=== PATIENT | female | born 1975 | race Caucasian/White ===

== ENCOUNTER 2016-06-22 22:34 | Emergency (ER) | payer OTHER ==
[2016-06-22 22:44] VITALS: RESP 18
--- NOTE | 2016-06-22 23:18 | ED ---
Psych HPI <Haseeb Yusuf - Last Filed: 06/23/16 10:52> - General Source: patient, RN notes reviewed Mode of arrival: ambulatory <Shirley Sorenson - Last Filed: 08/06/16 04:39> - General Chief Complaint: Psychiatric Symptoms Stated Complaint: Petitioned Time Seen by Provider: 06/22/16 22:49 - History of Present Illness Initial Comments: Patient is a 40-year-old female presents to the emergency room for psychiatric evaluation. Patient was petitioned by her sister and daughter. Patient states she was sitting in her house and was getting ready to go to bed when the police came and picked her up. Patient states she has not drank alcohol for 15 years. Patient states she began drinking alcohol the past 3 months every day. Patient states she has no reason to overindulge alcohol she states "I don't give a shit about anything anymore". Patient denies suicidal or homicidal ideations. Patient states if she was suicidal she would've done the job without telling anyone. Patient states she has always lived her life being a "good girl" and decided she didn't want to be like that anymore so that's why she took up drinking. Patient denies illicit drug use. Patient denies marijuana use. Patient states she goes through about a pack of cigarettes per day. Patient denies any significant past medical history. Patient denies taking any medications. Patient states her last menstrual cycle was a month and a half ago. Patient states she is worried she is . Patient states she thinks she was petitioned by her daughter and sister because they want her baby patient denies chest pain, shortness of breath, headache, dizziness, fevers , chills, nausea, vomiting, abdominal pain.. (Shirley Sorenson) - Related Data Home Medications Medication Instructions Recorded Confirmed Albuterol Inhaler [Ventolin Hfa 1 - 2 puff INHALATION RT-QID PRN 06/22/16 Inhaler] Ibuprofen [Motrin] 600 mg PO BID PRN 06/22/16 06/22/16 Allergies Allergy/AdvReac Type Severity Reaction Status Date / Time Penicillins Allergy Unknown Verified 06/22/16 22:59 Review of Systems ROS Other: All systems not noted in ROS Statement are negative. <Haseeb Yusuf - Last Filed: 06/23/16 10:52> ROS Other: All systems not noted in ROS Statement are negative. <Shirley Sorenson - Last Filed: 08/06/16 04:39> ROS Statement: Those systems with pertinent positive or pertinent negative responses have been documented in the HPI. Past Medical History Past Medical History: Asthma, Hypertension History of Any Multi-Drug Resistant Organisms: None Reported Past Surgical History: Orthopedic Surgery Past Psychological History: Anxiety Smoking Status: Current every day smoker Past Alcohol Use History: Daily Past Drug Use History: None Reported <Shirley Sorenson - Last Filed: 08/06/16 04:39> General Exam <Haseeb Yusuf - Last Filed: 06/23/16 10:52> Limitations: no limitations General appearance: alert, in no apparent distress, appears intoxicated Head exam: Present: atraumatic, normocephalic, normal inspection Eye exam: Present: normal appearance, PERRL, EOMI Pupils: Present: normal accommodation ENT exam: Present: normal exam Neck exam: Present: normal inspection Respiratory exam: Present: normal lung sounds bilaterally. Absent: respiratory distress Cardiovascular Exam: Present: normal rhythm, tachycardia, normal heart sounds GI/Abdominal exam: Present: soft, normal bowel sounds. Absent: distended, tenderness, guarding, rebound, rigid Extremities exam: Present: normal inspection Back exam: Present: normal inspection Neurological exam: Present: alert, oriented X3, CN II-XII intact, normal gait Psychiatric exam: Present: normal affect, normal mood Skin exam: Present: warm, dry, intact, normal color. Absent: rash <Shirley Sorenson - Last Filed: 08/06/16 04:39> - General Exam Comments Initial Comments: Sitting in exam room, no acute distress. (Shirley Sorenson) Course <Haseeb Yusuf - Last Filed: 06/23/16 10:52> <Shirley Sorenson - Last Filed: 08/06/16 04:39> Vital Signs 06/22/16 06/23/16 06/23/16 22:40 07:01 12:11 Temperature 99.2 F 97.8 F 98.3 F Pulse Rate 112 H 65 77 Respiratory 18 18 18 Rate Blood Pressure 151/107 165/106 168/72 O2 Sat by Pulse 96 100 99 Oximetry - Reevaluation(s) Reevaluation #1: 06/23/16 05:10 Patient complaining of throat pain. Rapid strep ordered and negative. Patient given Tylenol for discomfort. (Shirley Sorenson) Medical Decision Making <Haseeb Yusuf - Last Filed: 06/23/16 10:52> <Shirley Sorenson - Last Filed: 08/06/16 04:39> - Medical Decision Making Patient is a 40-year-old female presents emergency room for psychiatric evaluation. Patient was petitioned by her sister and daughter. Patient can be evaluated when she sober at 9 AM. (Shirley Sorenson) - Lab Data Lab Results 06/22/16 06/22/16 06/23/16 Range/Units 22:00 22:00 04:28 Urine HCG, Qual Not Detected (Not Detectd) Urine Opiates Screen Not Detected (NotDetected) Ur Oxycodone Screen Not Detected (NotDetected) Urine Methadone Screen Not Detected (NotDetected) Ur Propoxyphene Screen Not Detected (NotDetected) Ur Barbiturates Screen Not Detected (NotDetected) U Tricyclic Antidepress Not Detected (NotDetected) Ur Phencyclidine Scrn Not Detected (NotDetected) Ur Amphetamines Screen Not Detected (NotDetected) U Methamphetamines Scrn Not Detected (NotDetected) U Benzodiazepines Scrn Not Detected (NotDetected) Urine Cocaine Screen Not Detected (NotDetected) U Marijuana (THC) Screen Not Detected (NotDetected) Group A Strep Rapid Negative (Negative) Disposition Time of Disposition: 10:52 <Haseeb Yusuf - Last Filed: 06/23/16 10:52> Time of Disposition: 10:52 <Shirley Sorenson - Last Filed: 08/06/16 04:39> Clinical Impression: Situational depression, Alcohol intoxication Disposition: TRANSFER TO PSYCH HOSP/UNIT Condition: Stable Instructions: Alcohol Intoxication (ED) Referrals: None,Stated [Primary Care Provider] - 1-2 days
[2016-06-23] MEDS ORDERED: ACETAMINOPHEN TAB 325 MG TAB PO STA (03:59)
[2016-06-23] MEDS ORDERED: LORazepam 1 MG TAB PO STA (07:13)
[2016-06-23 12:13] VITALS: BP 168/72; PULSE 77; TEMP 98.3
== END 2016-06-23 12:13 | disposition home or self-care (01) ==
LOC: EC 22:34
DX: F43.21 Adjustment disorder with depressed mood (principal); F10.129 Alcohol abuse with intoxication, unspecified; Z88.0 Allergy status to penicillin; F17.210 Nicotine dependence, cigarettes, uncomplicated; J02.9 Acute pharyngitis, unspecified
CPT/HCPCS: 80306; 81025; 82075; 87081; 87430; 99284

== ENCOUNTER 2016-08-23 19:57 | Emergency (ER) | payer OTHER ==
[2016-08-23 20:15] VITALS: BP 155/91; PULSE 121; RESP 20; TEMP 98.7
[2016-08-23] MEDS ORDERED: SODIUM CHLORIDE 0.9% 1,000 ML IV ONE (20:42)
== END 2016-08-23 20:57 | disposition left against medical advice (07) ==
LOC: EC 19:57
DX: R10.9 Unspecified abdominal pain (principal); Z53.21 Procedure and treatment not carried out due to patient leaving prior to being seen by health care provider
CPT/HCPCS: 99499

== ENCOUNTER 2016-09-08 19:16 | Observation (INO) | payer OTHER ==
[2016-09-08] MEDS ORDERED: MORPHINE SULFATE 4 MG/ML SYRINGE IV STA (19:35)
[2016-09-08] MEDS ORDERED: SODIUM CHLORIDE 0.9% 1,000 ML IV STA ×2 (19:35)
[2016-09-08] MEDS ORDERED: ONDANSETRON 4 MG/2 ML VIAL IVP STA (19:35)
[2016-09-08] MEDS ORDERED: SODIUM CHLORIDE 0.9% 1,000 ML IV ONE (19:39)
--- NOTE | 2016-09-08 19:55 | ED ---
Chest Pain HPI - General Chief Complaint: Chest Pain Stated Complaint: chest pain Time Seen by Provider: 09/08/16 19:26 Source: EMS Mode of arrival: EMS - History of Present Illness Initial Comments: 40 years old female presented with chest pain, chest pain started about 2-3 hours ago she is also very short-winded and a deep breaths cause her chest pain to get worse. She does have a history of COPD has been coughing complaining about fever or chills but cough is dry he has smoked for greater than 15 years and a she has COPD. She has albuterol to go a few times now she feels shaky area denies any abdominal pain no frequency urgency dysuria no sinus symptoms of TIA or CVA. She told me later that she has been drinking quite heavy every day for the last several months she been drinking about 10 beers daily last drink was this morning around 9:00 - Related Data Home Medications Medication Instructions Recorded Confirmed Albuterol Inhaler [Ventolin Hfa 1 - 2 puff INHALATION RT-Q6H PRN 09/08/16 Inhaler] Cyanocobalamin (Vitamin B-12) 1,000 mcg PO DAILY 09/08/16 09/08/16 [Vitamin B-12] Ferrous Sulfate [Feosol] 325 mg PO DAILY 09/08/16 09/08/16 Gzd-Kbih-Mlobi Acid 1 cap PO DAILY 09/08/16 09/08/16 [-U Capsule (formulary)] Allergies Allergy/AdvReac Type Severity Reaction Status Date / Time Penicillins Allergy Unknown Verified 09/08/16 20:16 ibuprofen AdvReac patient Verified 09/08/16 20:16 has ulcer Review of Systems ROS Statement: Those systems with pertinent positive or pertinent negative responses have been documented in the HPI. ROS Other: All systems not noted in ROS Statement are negative. EKG Findings - EKG Comments: EKG Findings:: Is sinus tach, ventricular rate is 136 IN interval is 1:30 QRS duration is 68 QT/QTc is 372/459-50 mL EKG does not reveal any ST elevation or ST depression Past Medical History Past Medical History: Asthma, Hypertension Additional Past Medical History / Comment(s): gastric ulcer History of Any Multi-Drug Resistant Organisms: None Reported Past Surgical History: Orthopedic Surgery Past Psychological History: Anxiety, Bipolar, Depression Smoking Status: Current every day smoker Past Alcohol Use History: Abuse, Daily, Heavy Past Drug Use History: None Reported General Exam - General Exam Comments Initial Comments: General: The patient is awake and alert, in no distress, and does not appear acutely ill. Looks anxious him and noticed some tremors Skin: Skin is warm and dry and no rashes or lesions are noted. Eye: Pupils are equal, round and reactive to light, extra-ocular movements are intact; there is normal conjunctiva bilaterally. Ears, nose, mouth and throat: There are moist mucous membranes and no oral lesions. Neck: The neck is supple, there is no tenderness Cardiovascular: There is a regular rate and rhythm. No murmur, rub or gallop is appreciated. Noticed tachycardia at the rate of 136 Respiratory: To auscultation bilateral, consistent with the moderate to severe COPD Gastrointestinal: Soft, non-distended, non-tender abdomen without masses or organomegaly noted. There is no rebound or guarding present. Bowel sounds are unremarkable. Back: There is no tenderness to palpation in the midline. There is no obvious deformity. Musculoskeletal: Normal ROM, no tenderness, There is no pedal edema. There is no calf tenderness or swelling. No cords were appreciated. Neurological: CN II-XII intact, Cranial nerves III through XII are intact. There are no obvious motor or sensory deficits. Coordination appears grossly intact. Speech is normal. Psychiatric: Cooperative, appropriate mood & affect, normal judgment. Course Vital Signs 09/08/16 09/08/16 09/08/16 19:18 19:42 20:31 Temperature 98.6 F Pulse Rate 90 130 H 120 H Respiratory 20 24 18 Rate Blood Pressure 153/78 125/73 127/84 O2 Sat by Pulse 99 99 96 Oximetry Disposition Clinical Impression: Shortness of breath, Chest pain, Pleuritic chest pain, Alcohol withdrawal Disposition: ADMITTED IP TO THIS HOSP Condition: Good Referrals: None,Stated [Primary Care Provider] - 1-2 days
--- NOTE | 2016-09-08 20:08 | XR ---
EXAMINATION TYPE: XR chest 2V DATE OF EXAM: 09/08/2016 8:03 PM COMPARISON: NONE HISTORY: Chest pain TECHNIQUE: Frontal and lateral views of the chest are obtained. FINDINGS: Heart and mediastinum are normal. There are no hilar masses. There is small linear density at the left lung base. There are chest leads. Bony thorax is intact. IMPRESSION: Mild subsegmental atelectasis at the left lung base. Normal heart.
[2016-09-08 20:09] LABS: Partial Thromboplastin Time 25.7 sec (22.0-30.0); Prothrombin Time 10.4 sec (9.0-12.0)
[2016-09-08 20:15] LABS: ALT 59 U/L (9-52); AST 145 U/L (14-36); Alkaline Phosphatase 133 U/L (38-126); Anion Gap 9 mmol/L; Blood Urea Nitrogen 2 mg/dL (7-17); Calcium 8.4 mg/dL (8.4-10.2); Carbon Dioxide 25 mmol/L (22-30); Chloride 104 mmol/L (98-107); Glucose 130 mg/dL (74-99); Magnesium 1.6 mg/dL (1.6-2.3); Non-African American GFR(MDRD) >60 (>60 ml/min/1.73 sqM); Potassium 3.7 mmol/L (3.5-5.1); Sodium 138 mmol/L (137-145); Total Bilirubin 0.5 mg/dL (0.2-1.3); Total Protein 6.4 g/dL (6.3-8.2)
[2016-09-08 20:16] LABS: Anisocytosis Slight; Basophils % (A) 1 %; CH 33.3; CHCM 31.2; Eosinophils # (A) 0.1 k/uL (0-0.7); Eosinophils % (A) 2 %; HCT 35.1 % (34.0-46.0); HDW 2.17; HGB 11.5 gm/dL (11.4-16.0); Luc # (Auto) 0.09; Luc % (Auto) 2; Lymphocytes # (A) 1.2 k/uL (1.0-4.8); Lymphocytes % (A) 24 %; MCH 34.9 pg (25.0-35.0); MCHC 32.6 g/dL (31.0-37.0); MCV 106.9 fL (80.0-100.0); Macrocytosis Marked; Mean Platelet Volume 7.4; Monocytes # (A) 0.2 k/uL (0-1.0); Monocytes % (A) 5 %; Neutrophils # (A) 3.2 k/uL (1.3-7.7); Neutrophils % (A) 66 %; RBC 3.28 m/uL (3.80-5.40); RDW 17.2 % (11.5-15.5); WBC 4.8 k/uL (3.8-10.6); WBC (Perox) 4.92
[2016-09-08 20:20] LABS: Creatine Kinase 34 U/L (30-135)
[2016-09-08 20:33] VITALS: RESP 18
[2016-09-08 20:34] LABS: Creatine Kinase MB 0.3 ng/mL (0.0-2.4); Troponin I <0.012 ng/mL (0.000-0.034)
[2016-09-08] MEDS ORDERED: DIAZEPAM 5 MG TAB PO STA (20:47)
[2016-09-08] MEDS ORDERED: THIAMINE 100 MG/ML 2 ML VIAL IM STA (20:50)
[2016-09-08] MEDS ORDERED: LORazepam 2 MG/ML SYRINGE IV PRN ×2 (20:50)
[2016-09-08] MEDS ORDERED: ALBUTEROL NEBULIZED 2.5 MG/3 ML INHALATION PRN (20:56)
[2016-09-08] MEDS ORDERED: PANTOPRAZOLE 40 MG/10 ML VIAL IVP STA (20:57)
[2016-09-08] MEDS ORDERED: DIAZEPAM 5 MG TAB PO PRN (20:58)
[2016-09-08] MEDS ORDERED: METOPROLOL TARTRATE 25 MG TAB PO SCH (21:00)
[2016-09-08] MEDS ORDERED: HEPARIN SODIUM,PORCINE/D5W PMX 25,000 UNIT in DEXTROSE/WATER 1 500ML.BAG IV SCH (21:00)
[2016-09-08] MEDS: MORPHINE SULFATE 4 MG/ML SYRINGE IV PRN ×2 (21:45→23:32)
[2016-09-08] MEDS ORDERED: THIAMINE 100 MG TAB PO SCH (22:00)
[2016-09-08 22:44] VITALS: BMI 24.3
[2016-09-08] MEDS: SODIUM CHLORIDE 0.9% 1,000 ML IV SCH (23:00)
[2016-09-08] MEDS: NITROGLYCERIN SL TABS 0.4 MG TAB SUBLINGUAL PRN ×3 (23:14→23:23)
[2016-09-08] MEDS: LORazepam 2 MG/ML SYRINGE IV PRN (23:40)
[2016-09-09 01:59] LABS: Creatine Kinase 51 U/L (30-135)
[2016-09-09 02:12] LABS: Creatine Kinase MB 0.6 ng/mL (0.0-2.4); Troponin I <0.012 ng/mL (0.000-0.034)
[2016-09-09] MEDS: LORazepam 2 MG/ML SYRINGE IV PRN ×4 (02:56→07:31)
[2016-09-09] MEDS: SODIUM CHLORIDE 0.9% 1,000 ML IV SCH (06:37)
[2016-09-09 08:09] VITALS: BP 139/86; PULSE 94; TEMP 98.1
[2016-09-09 08:15] LABS: Cholesterol 135 mg/dL (<200); HDL Cholesterol 55 mg/dL (40-60); Triglycerides 127 mg/dL (<150)
[2016-09-09 08:26] LABS: Creatine Kinase 50 U/L (30-135)
[2016-09-09 08:40] LABS: Creatine Kinase MB 0.6 ng/mL (0.0-2.4); Troponin I <0.012 ng/mL (0.000-0.034)
[2016-09-09] MEDS ORDERED: PRENATAL VIT-IRON-FOLIC ACID 1 EACH CAP PO SCH (09:00)
[2016-09-09] MEDS ORDERED: FERROUS SULFATE 325 MG TAB PO SCH (09:00)
[2016-09-09] MEDS ORDERED: PANTOPRAZOLE 40 MG/10 ML VIAL IVP SCH (09:00)
[2016-09-09] MEDS ORDERED: ASPIRIN 325 MG TAB PO SCH (09:00)
[2016-09-09] MEDS ORDERED: CYANOCOBALAMIN 500 MCG TAB PO SCH (12:00)
--- NOTE | 2016-09-27 08:42 | HP ---
DATE OF ADMISSION: FINAL DIAGNOSES: 1. Shortness of breath. 2. Pleuritic chest. 3. Alcohol withdrawal. HISTORY OF PRESENT ILLNESS: This 40-year-old woman was admitted with multiple medical problems as mentioned earlier; but however, the patient left the hospital AGAINST MEDICAL ADVICE before being seen. Please refer to the staff notes and ER notes for further details.
--- NOTE | 2016-09-28 08:20 | DS ---
DATE OF ADMISSION: 09/08/2016 DATE OF DISCHARGE: 09/09/2016 FINAL DIAGNOSES: 1. Shortness of breath for evaluation of chest pain, possible coronary artery disease. 2. Pleuritic chest pain. 3. History of alcohol withdrawal. HISTORY OF PRESENT ILLNESS: This 40-year-old woman with a past medical history was admitted with multiple medical problems as mentioned earlier, but however the patient left the hospital AGAINST MEDICAL ADVICE before being seen. Please refer to the staff notes and ER physician notes for further information. The prognosis was extremely guarded throughout the hospital stay.
== END 2016-09-09 10:13 | disposition left against medical advice (07) ==
LOC: EC 19:16 → INTOOBSV 20:51 → 6SEL 20:51
PROVIDERS: ADMIT Hospitalist; ATTEND Hospitalist
DX: R07.89 Other chest pain (principal); F10.239 Alcohol dependence with withdrawal, unspecified; R06.02 Shortness of breath; I10 Essential (primary) hypertension; J44.9 Chronic obstructive pulmonary disease, unspecified; F17.200 Nicotine dependence, unspecified, uncomplicated; F41.9 Anxiety disorder, unspecified; F31.9 Bipolar disorder, unspecified; R00.0 Tachycardia, unspecified; Z88.6 Allergy status to analgesic agent; Z53.21 Procedure and treatment not carried out due to patient leaving prior to being seen by health care provider; Z79.899 Other long term (current) drug therapy; Z88.0 Allergy status to penicillin; Z87.11 Personal history of peptic ulcer disease; J45.909 Unspecified asthma, uncomplicated
CPT/HCPCS: 96366 ×2; 96376; 96361; 96365; 96372; 96375; 99285; 36415; 94760; 93005; 85379; 80061; 80053; 82550 ×2; 82553 ×2; 83735; 84484 ×2; 85025; 85610; 85730 ×2; 71020; G0378 ×2; J2060 ×2; J2270; J3411; J2405; J1644; C9113

== ENCOUNTER 2016-10-02 19:07 | Emergency (ER) | payer OTHER ==
[2016-10-02 19:22] VITALS: RESP 16
--- NOTE | 2016-10-02 19:37 | ED ---
Head Injury HPI - General Chief complaint: Head Injury Stated complaint: lump on head/dizzy Time Seen by Provider: 10/02/16 19:26 Source: patient Mode of arrival: ambulatory Limitations: no limitations - History of Present Illness Initial comments: 40-year-old female states last Tuesday which was 6-7 days ago she slipped on the step fell backwards striking the back of her left head. She was stunned knocked out briefly had vomiting for 2 days has continued have some dizziness occasional spinning no visual disturbance no focal numbness or weakness no neck or back pain denies injury elsewhere. Patient has a regular drinker planning to go into rehab. She denies drug use. No previous head injuries. She was hospitalized last July for an extended seizure at [facility] and was intubated for 3 days - Related Data Home Medications Medication Instructions Recorded Confirmed Albuterol Inhaler [Ventolin Hfa 2 puff INHALATION RT-Q4H PRN 09/08/16 10/02/16 Inhaler] Acetaminophen [Tylenol] 650 mg PO Q4H 10/02/16 10/02/16 Atenolol 25 mg PO DAILY@0600 10/02/16 10/02/16 Chlorpheniramine Maleate 4 mg PO Q4H PRN 10/02/16 10/02/16 [Chlor-Trimeton] Ibuprofen [Motrin] 600 mg PO Q6HR PRN 10/02/16 10/02/16 Loperamide [Imodium] 2 mg PO QID PRN 10/02/16 10/02/16 Multivitamins, Thera [Multivitamin 1 tab PO DAILY 10/02/16 10/02/16 (formulary)] Ondansetron HCl [Zofran] 8 mg PO Q6H PRN 10/02/16 10/02/16 Ondansetron [Zofran] 4 mg IM Q6H PRN 10/02/16 10/02/16 Ranitidine HCl [Zantac] 150 mg PO BID@0600,1730 10/02/16 10/02/16 Thiamine [Vitamin B-1] 100 mg PO DAILY 10/02/16 10/02/16 Tigan 200mg 200 mg IM Q6H PRN 10/02/16 10/02/16 Trimethobenzamide HCl [Tigan] 300 mg PO Q6H PRN 10/02/16 10/02/16 cloNIDine HCL [Catapres] 0.1 - 0.3 mg PO DAILY PRN 10/02/16 10/02/16 traZODone HCL [Desyrel] 50 - 150 mg PO HS@2200 10/02/16 10/02/16 Previous Rx's Medication Instructions Recorded Amitriptyline HCl [Elavil] 10 mg PO HS #30 tablet 10/02/16 Allergies/Adverse reactions: Allergies Allergy/AdvReac Type Severity Reaction Status Date / Time Penicillins Allergy Unknown Verified 10/02/16 19:22 ibuprofen AdvReac patient Verified 10/02/16 19:22 has ulcer Review of Systems ROS Statement: Those systems with pertinent positive or pertinent negative responses have been documented in the HPI. ROS Other: All systems not noted in ROS Statement are negative. Constitutional: Denies: fever, chills Eyes: Denies: eye pain ENT: Denies: ear pain, throat pain Respiratory: Denies: cough Cardiovascular: Denies: chest pain Gastrointestinal: Reports: nausea, vomiting. Denies: abdominal pain Genitourinary: Denies: urgency, dysuria, frequency Musculoskeletal: Denies: back pain Skin: Denies: rash Neurological: Reports: headache Psychiatric: Denies: anxiety, depression Hematological/Lymphatic: Denies: easy bleeding, easy bruising Past Medical History Past Medical History: Asthma, COPD, Hypertension, Seizure Disorder Additional Past Medical History / Comment(s): gastric ulcer, emphysema, seizure after stopping etoh use History of Any Multi-Drug Resistant Organisms: None Reported Past Surgical History: Orthopedic Surgery Additional Past Surgical History / Comment(s): TMJ (jaw was locked), 3 left rotator cuff surgeries Past Anesthesia/Blood Transfusion Reactions: No Reported Reaction Past Psychological History: ADD/ADHD, Anxiety, Bipolar, Depression Smoking Status: Current every day smoker Past Alcohol Use History: Abuse, Daily, Heavy Past Drug Use History: None Reported - Past Family History Father Family Medical History: Congestive Heart Failure (CHF) General Exam Limitations: no limitations General appearance: alert Head exam: Present: other (Large hematoma on the posterior left scalp behind the ear) Eye exam: Present: PERRL, EOMI. Absent: scleral icterus Pupils: Present: normal accommodation ENT exam: Present: normal oropharynx, mucous membranes moist, TM's normal bilaterally Neck exam: Present: normal inspection Respiratory exam: Present: normal lung sounds bilaterally Cardiovascular Exam: Present: regular rate, normal heart sounds GI/Abdominal exam: Present: soft. Absent: tenderness Neurological exam: Present: alert, oriented X3, CN II-XII intact, reflexes normal. Absent: motor sensory deficit Psychiatric exam: Present: normal affect, normal mood Skin exam: Present: warm, dry Course Vital Signs 10/02/16 10/02/16 10/02/16 19:17 20:11 21:22 Temperature 98.3 F Pulse Rate 97 80 83 Respiratory 16 16 16 Rate Blood Pressure 153/93 150/104 O2 Sat by Pulse 97 98 97 Oximetry Medical Decision Making - Medical Decision Making She noticed some dizziness and headache postop concussion has scalp hematoma have advised her used heat and follow head injury precautions will follow-up with family doctor and referral to neurology. - Lab Data Result diagrams: 10/02/16 20:11 10/02/16 20:11 Lab Results 10/02/16 10/02/16 10/02/16 Range/Units 19:15 19:15 20:10 WBC (3.8-10.6) k/uL RBC (3.80-5.40) m/uL Hgb (11.4-16.0) gm/dL Hct (34.0-46.0) % MCV (80.0-100.0) fL MCH (25.0-35.0) pg MCHC (31.0-37.0) g/dL RDW (11.5-15.5) % Plt Count (150-450) k/uL Neutrophils % % Lymphocytes % % Monocytes % % Eosinophils % % Basophils % % Neutrophils # (1.3-7.7) k/uL Lymphocytes # (1.0-4.8) k/uL Monocytes # (0-1.0) k/uL Eosinophils # (0-0.7) k/uL Basophils # (0-0.2) k/uL Macrocytosis PT 9.8 (9.0-12.0) sec INR 1.0 (<1.1) Sodium (137-145) mmol/L Potassium (3.5-5.1) mmol/L Chloride (98-107) mmol/L Carbon Dioxide (22-30) mmol/L Anion Gap mmol/L BUN (7-17) mg/dL Creatinine (0.52-1.04) mg/dL Est GFR (MDRD) Af Amer (>60 ml/min/1.73 sqM) Est GFR (MDRD) Non-Af (>60 ml/min/1.73 sqM) Glucose (74-99) mg/dL Calcium (8.4-10.2) mg/dL Total Bilirubin (0.2-1.3) mg/dL AST (14-36) U/L ALT (9-52) U/L Alkaline Phosphatase (38-126) U/L Total Protein (6.3-8.2) g/dL Albumin (3.5-5.0) g/dL Urine Color Colorless Urine Appearance Clear (Clear) Urine pH 7.0 (5.0-8.0) Ur Specific [place] 1.003 (1.001-1.035) Urine Protein Negative (Negative) Urine Glucose (UA) Negative (Negative) Urine Ketones Negative (Negative) Urine Blood Negative (Negative) Urine Nitrite Negative (Negative) Urine Bilirubin Negative (Negative) Urine Urobilinogen <2.0 (<2.0) mg/dL Ur Leukocyte Esterase Negative (Negative) Urine HCG, Qual Not Detected (Not Detectd) 10/02/16 10/02/16 Range/Units 20:11 20:11 WBC 7.4 (3.8-10.6) k/uL RBC 3.60 L (3.80-5.40) m/uL Hgb 12.6 (11.4-16.0) gm/dL Hct 38.2 (34.0-46.0) % MCV 106.2 H (80.0-100.0) fL MCH 35.0 (25.0-35.0) pg MCHC 33.0 (31.0-37.0) g/dL RDW 15.2 (11.5-15.5) % Plt Count 143 L (150-450) k/uL Neutrophils % 60 % Lymphocytes % 28 % Monocytes % 8 % Eosinophils % 2 % Basophils % 0 % Neutrophils # 4.5 (1.3-7.7) k/uL Lymphocytes # 2.1 (1.0-4.8) k/uL Monocytes # 0.6 (0-1.0) k/uL Eosinophils # 0.1 (0-0.7) k/uL Basophils # 0.0 (0-0.2) k/uL Macrocytosis Moderate PT (9.0-12.0) sec INR (<1.1) Sodium 139 (137-145) mmol/L Potassium 4.6 (3.5-5.1) mmol/L Chloride 107 (98-107) mmol/L Carbon Dioxide 22 (22-30) mmol/L Anion Gap 10 mmol/L BUN 9 (7-17) mg/dL Creatinine 0.60 (0.52-1.04) mg/dL Est GFR (MDRD) Af Amer >60 (>60 ml/min/1.73 sqM) Est GFR (MDRD) Non-Af >60 (>60 ml/min/1.73 sqM) Glucose 106 H (74-99) mg/dL Calcium 10.1 (8.4-10.2) mg/dL Total Bilirubin 0.5 (0.2-1.3) mg/dL AST 70 H (14-36) U/L ALT 71 H (9-52) U/L Alkaline Phosphatase 132 H (38-126) U/L Total Protein 7.4 (6.3-8.2) g/dL Albumin 4.1 (3.5-5.0) g/dL Urine Color Urine Appearance (Clear) Urine pH (5.0-8.0) Ur Specific [place] (1.001-1.035) Urine Protein (Negative) Urine Glucose (UA) (Negative) Urine Ketones (Negative) Urine Blood (Negative) Urine Nitrite (Negative) Urine Bilirubin (Negative) Urine Urobilinogen (<2.0) mg/dL Ur Leukocyte Esterase (Negative) Urine HCG, Qual (Not Detectd) - Radiology Data Radiology results: report reviewed CT normal Disposition Clinical Impression: Closed head injury, Hematoma of scalp, Postconcussion syndrome Disposition: HOME SELF-CARE Condition: Good Instructions: Concussion (ED) Additional Instructions: See family physician recommend follow-up with neurologist Prescriptions: Amitriptyline HCl [Elavil] 10 mg PO HS #30 tablet Referrals: Leonid Olmstead MD [Primary Care Provider] - 1-2 days Time of Disposition: 21:28
[2016-10-02 19:48] LABS: Appearance,Urine Clear (Clear); Bilirubin,Urine Negative (Negative); Glucose,Urine (UA) Negative (Negative); Ketones,Urine Negative (Negative); Leukocyte Esterase,Urine Negative (Negative); Nitrite,Urine Negative (Negative); Protein,Urine Negative (Negative); Specific Gravity,Urine 1.003 (1.001-1.035); UA Billing (MACRO vs. MICRO) CHEM; Urobilinogen,Urine <2.0 mg/dL (<2.0)
[2016-10-02 20:20] LABS: Basophils % (A) 0 %; CH 35.1; CHCM 33.2; Eosinophils # (A) 0.1 k/uL (0-0.7); Eosinophils % (A) 2 %; HCT 38.2 % (34.0-46.0); HDW 2.04; HGB 12.6 gm/dL (11.4-16.0); Luc # (Auto) 0.19; Luc % (Auto) 3; Lymphocytes # (A) 2.1 k/uL (1.0-4.8); Lymphocytes % (A) 28 %; MCV 106.2 fL (80.0-100.0); Macrocytosis Moderate; Monocytes # (A) 0.6 k/uL (0-1.0); Monocytes % (A) 8 %; Neutrophils # (A) 4.5 k/uL (1.3-7.7); Neutrophils % (A) 60 %; RDW 15.2 % (11.5-15.5); WBC 7.4 k/uL (3.8-10.6); WBC (Perox) 8.29
[2016-10-02 20:28] LABS: Prothrombin Time 9.8 sec (9.0-12.0)
[2016-10-02 20:32] LABS: ALT 71 U/L (9-52); AST 70 U/L (14-36); Alkaline Phosphatase 132 U/L (38-126); Anion Gap 10 mmol/L; Blood Urea Nitrogen 9 mg/dL (7-17); Calcium 10.1 mg/dL (8.4-10.2); Carbon Dioxide 22 mmol/L (22-30); Chloride 107 mmol/L (98-107); Glucose 106 mg/dL (74-99); Non-African American GFR(MDRD) >60 (>60 ml/min/1.73 sqM); Potassium 4.6 mmol/L (3.5-5.1); Sodium 139 mmol/L (137-145); Total Bilirubin 0.5 mg/dL (0.2-1.3); Total Protein 7.4 g/dL (6.3-8.2)
[2016-10-02] MEDS ORDERED: LORazepam 1 MG TAB PO STA (20:56)
--- NOTE | 2016-10-02 20:59 | CT ---
EXAMINATION TYPE: CT brain wo con DATE OF EXAM: 10/02/2016 COMPARISON: NONE HISTORY: Patient complains of headache and posterior head "lump" post fall [address] DLP: 782.6 mGycm. Automated Exposure Control for Dose Reduction was Utilized. TECHNIQUE: CT scan of the head is performed without contrast. FINDINGS: Ventricles of normal size. There is no mass effect nor midline shift. There is no sign of intracrania l hemorrhage. The calvarium is intact. There is left parietal scalp hematoma noted. IMPRESSION: There is left parietal scalp hematoma. No acute intracranial abnormality..
[2016-10-02 21:52] VITALS: BP 142/87; PULSE 80; TEMP 98.1
== END 2016-10-02 21:56 | disposition home or self-care (01) ==
LOC: EC 19:07
DX: S00.03XA Contusion of scalp, initial encounter (principal); F07.81 Postconcussional syndrome; I10 Essential (primary) hypertension; F31.9 Bipolar disorder, unspecified; F41.9 Anxiety disorder, unspecified; F17.200 Nicotine dependence, unspecified, uncomplicated; Z79.891 Long term (current) use of opiate analgesic; Z79.899 Other long term (current) drug therapy; Z88.0 Allergy status to penicillin; Z88.6 Allergy status to analgesic agent; Z87.19 Personal history of other diseases of the digestive system; W01.10XA Fall on same level from slipping, tripping and stumbling with subsequent striking against unspecified object, initial encounter
CPT/HCPCS: 36415; 70450; 80053; 81003; 81025; 85025; 85610; 99284

== ENCOUNTER → 2019-01-01 | Outpatient (CLI) | payer OTHER ==
[2019-01-01 11:15] LABS: Basophils # (A) 0.1 k/uL (0-0.2); Basophils % (A) 1 %; Eosinophils # (A) 0.2 k/uL (0-0.7); Eosinophils % (A) 2 %; HCT 33.8 % (34.0-46.0); HGB 10.8 gm/dL (11.4-16.0); Lymphocytes # (A) 2.1 k/uL (1.0-4.8); Lymphocytes % (A) 27 %; MCH 33.2 pg (25.0-35.0); MCV 103.7 fL (80.0-100.0); Macrocytosis Slight; Monocytes # (A) 0.4 k/uL (0-1.0); Monocytes % (A) 5 %; Neutrophils # (A) 4.6 k/uL (1.3-7.7); Neutrophils % (A) 61 %; Platelet Count 345 k/uL (150-450); RBC 3.26 m/uL (3.80-5.40); RDW 15.3 % (11.5-15.5); WBC 7.6 k/uL (3.8-10.6)
[2019-01-01 13:00] LABS: Erythrocyte Sedimentation Rate 80 mm/hr (0-20)
[2019-01-01 16:17] LABS: Anion Gap 7.2 mmol/L (4.00-12.00); C Reactive Protein 0.8 mg/dL (0.0-0.8); Calcium 9.3 mg/dL (8.7-10.3); Carbon Dioxide 21.8 mmol/L (21.6-31.8); Potassium 4.2 mmol/L (3.5-5.5)
== END | disposition home or self-care (01) ==
LOC: LABWHC1 10:30
PROVIDERS: ATTEND Internal Medicine Infectious Disease
DX: A41.9 Sepsis, unspecified organism (principal); Z88.0 Allergy status to penicillin
CPT/HCPCS: 36415; 80048; 85025; 85652; 86140; 87040

== ENCOUNTER 2019-04-15 13:02 | Emergency (ER) | payer OTHER | END 2019-04-15 13:03 | disposition left against medical advice (07) | LOC: EC 13:02 | DX: R45.6 Violent behavior (principal); Z53.21 Procedure and treatment not carried out due to patient leaving prior to being seen by health care provider | CPT/HCPCS: 99499 ==

== ENCOUNTER 2019-04-15 14:14 | Emergency (ER) | payer OTHER ==
[2019-04-15 14:57] VITALS: TEMP 97.6
--- NOTE | 2019-04-15 14:58 | ED ---
General Adult HPI - General Source: patient, police, RN notes reviewed Limitations: no limitations <Dave Be - Last Filed: 04/15/19 16:54> <Cherry Tubbs P - Last Filed: 04/16/19 03:35> - General Stated complaint: petition Time Seen by Provider: 04/15/19 14:31 - History of Present Illness Initial comments: Patient is a 48-year-old female presenting to the emergency department with police officers for mental health evaluation. Patient admits to drinking alcohol and somewhat getting out of control verbally earlier. Patient admits to telling police officers hurt thoughts of jumping out of her window. Patient states she has chronic thoughts of days however no she will not do it because it will not kill her and only hurt her. Patient reportedly made homicidal threats however denies this. Patient does admit to having a lifelong hallucinations of other people she knows are not there talking to her and telling her things that actually come true. Patient denies street drugs. No new physical complaints. (Dave Be) - Related Data Home Medications Medication Instructions Recorded Confirmed Albuterol Inhaler [Ventolin Hfa 2 puff INHALATION RT-Q6H PRN 09/08/16 04/15/19 Inhaler] Omeprazole 40 mg PO DAILY 04/15/19 04/15/19 busPIRone HCl [Buspar] 10 mg PO BID 04/15/19 04/15/19 Allergies Allergy/AdvReac Type Severity Reaction Status Date / Time Penicillins Allergy Unknown Verified 10/02/16 19:22 ibuprofen AdvReac patient Verified 10/02/16 19:22 has ulcer Review of Systems ROS Other: All systems not noted in ROS Statement are negative. Constitutional: Denies: fever Eyes: Denies: eye pain ENT: Denies: ear pain Respiratory: Denies: cough Cardiovascular: Denies: chest pain Endocrine: Denies: fatigue Gastrointestinal: Denies: abdominal pain Genitourinary: Denies: dysuria Musculoskeletal: Denies: back pain Skin: Denies: rash Neurological: Denies: weakness Psychiatric: Reports: as per HPI <Dave Be - Last Filed: 04/15/19 16:54> ROS Other: All systems not noted in ROS Statement are negative. <Cherry Tubbs - Last Filed: 04/16/19 03:35> ROS Statement: Those systems with pertinent positive or pertinent negative responses have been documented in the HPI. Past Medical History Past Medical History: Asthma, COPD, Hypertension, Seizure Disorder Additional Past Medical History / Comment(s): gastric ulcer, emphysema, seizure after stopping etoh use History of Any Multi-Drug Resistant Organisms: None Reported Past Surgical History: Orthopedic Surgery Additional Past Surgical History / Comment(s): TMJ (jaw was locked), 3 left rotator cuff surgeries Past Anesthesia/Blood Transfusion Reactions: No Reported Reaction Past Psychological History: ADD/ADHD, Anxiety, Bipolar, Depression Smoking Status: Current every day smoker Past Alcohol Use History: Abuse, Daily, Heavy Past Drug Use History: None Reported - Past Family History Father Family Medical History: Congestive Heart Failure (CHF) <Dave Be - Last Filed: 04/15/19 16:54> General Exam Limitations: no limitations General appearance: alert, in no apparent distress, appears intoxicated Head exam: Present: atraumatic, normocephalic Eye exam: Present: normal appearance, PERRL ENT exam: Present: normal oropharynx Neck exam: Present: normal inspection. Absent: tenderness Respiratory exam: Present: normal lung sounds bilaterally Cardiovascular Exam: Present: regular rate, normal rhythm GI/Abdominal exam: Present: soft. Absent: tenderness Extremities exam: Present: normal inspection Neurological exam: Present: alert Psychiatric exam: Present: normal affect, normal mood Skin exam: Present: normal color <Dave Be - Last Filed: 04/15/19 16:54> Course <Dave Be - Last Filed: 04/15/19 16:54> Vital Signs 04/15/19 04/16/19 14:50 02:00 Temperature 97.6 F Pulse Rate 113 H 102 H Respiratory 20 18 Rate Blood Pressure 129/89 157/104 O2 Sat by Pulse 97 100 Oximetry - Reevaluation(s) Reevaluation #1: 04/15/19 16:[address] Agrawal Pending mental health evaluation (Dave Be) Medical Decision Making - Lab Data Lab Results 04/15/19 Range/Units 15:06 Urine Opiates Screen Not Detected (NotDetected) Ur Oxycodone Screen Not Detected (NotDetected) Urine Methadone Screen Not Detected (NotDetected) Ur Propoxyphene Screen Not Detected (NotDetected) Ur Barbiturates Screen Not Detected (NotDetected) U Tricyclic Antidepress Not Detected (NotDetected) Ur Phencyclidine Scrn Not Detected (NotDetected) Ur Amphetamines Screen Not Detected (NotDetected) U Methamphetamines Scrn Not Detected (NotDetected) U Benzodiazepines Scrn Not Detected (NotDetected) Urine Cocaine Screen Not Detected (NotDetected) U Marijuana (THC) Screen Not Detected (NotDetected) Disposition <Dave Be - Last Filed: 04/15/19 16:54> Is patient prescribed a controlled substance at d/c from ED?: No <Cherry Tubbs - Last Filed: 04/16/19 03:35> Clinical Impression: Alcoholic intoxication Disposition: HOME SELF-CARE Condition: Stable Instructions (If sedation given, give patient instructions): Alcohol Intoxication (ED) Referrals: Aditya Licona, RICKY [Primary Care Provider] - 1-2 days
[2019-04-15 15:34] LABS: Amphetamine Screen,Urine Not Detected (NotDetected); Barbiturate Screen,Urine Not Detected (NotDetected); Benzodiazepines Screen,Urine Not Detected (NotDetected); Cocaine Screen,Urine Not Detected (NotDetected); Methadone Screen, Urine Not Detected (NotDetected); Opiate Screen,Urine Not Detected (NotDetected); Oxycodone Screen, Urine Not Detected (NotDetected); Phencyclidine Screen,Urine Not Detected (NotDetected); Tricyclic Antidepressant,Urine Not Detected (NotDetected); Urn Cannabinoid Scrn Not Detected (NotDetected)
[2019-04-15] MEDS ORDERED: LORazepam 1 MG TAB PO STA ×2 (16:23→20:34)
[2019-04-15] MEDS ORDERED: NICOTINE 21MG/24HR PATCH TRANSDERM STA (17:10)
[2019-04-16] MEDS ORDERED: chlordiazePOXIDE 25 MG CAP PO ONE (02:30)
[2019-04-16 02:38] VITALS: PULSE 102
[2019-04-16 03:51] VITALS: BP 155/102; RESP 21
== END 2019-04-16 03:51 | disposition home or self-care (01) ==
LOC: EC 14:14
DX: F10.129 Alcohol abuse with intoxication, unspecified (principal); R44.0 Auditory hallucinations; R45.850 Homicidal ideations; R45.851 Suicidal ideations; J43.9 Emphysema, unspecified; F31.9 Bipolar disorder, unspecified; F41.9 Anxiety disorder, unspecified; F17.200 Nicotine dependence, unspecified, uncomplicated; Z88.0 Allergy status to penicillin; Z88.6 Allergy status to analgesic agent; Z79.899 Other long term (current) drug therapy
CPT/HCPCS: 82075; 80306; 99285; S4990

== ENCOUNTER → 2019-05-03 | Outpatient (CLI) | payer OTHER ==
[2019-05-03 15:11] LABS: Anisocytosis Slight; Basophils # (A) 0.1 k/uL (0-0.2); Basophils % (A) 1 %; Eosinophils # (A) 0.2 k/uL (0-0.7); Eosinophils % (A) 2 %; HCT 35.9 % (34.0-46.0); HGB 11.5 gm/dL (11.4-16.0); Lymphocytes # (A) 2.8 k/uL (1.0-4.8); Lymphocytes % (A) 32 %; Macrocytosis Slight; Mean Platelet Volume 7.2; Monocytes # (A) 0.3 k/uL (0-1.0); Monocytes % (A) 4 %; Neutrophils # (A) 4.9 k/uL (1.3-7.7); Neutrophils % (A) 57 %; Platelet Count 299 k/uL (150-450); RBC 3.59 m/uL (3.80-5.40); RDW 17.1 % (11.5-15.5); WBC 8.5 k/uL (3.8-10.6)
[2019-05-03 19:54] LABS: African American GFR (CKD) 129.4 (60.0-200.0); Albumin 4.3 g/dL (3.80-4.90); Albumin/Globulin Ratio 1.79 (1.60-3.17); Anion Gap 8.5 mmol/L (4.00-12.00); BUN/Creat Ratio 16.67 Ratio (12.00-20.00); Calcium 9.3 mg/dL (8.7-10.3); Carbon Dioxide 23.5 mmol/L (21.6-31.8); Chol/HDL Ratio 6.03; Globulin 2.4 g/dL (1.6-3.3); Non-African American GFR(CKD) 111.6 (60.0-200.0); Potassium 3.7 mmol/L (3.5-5.5); Total Bilirubin 0.5 mg/dL (0.2-1.2); Total Protein 6.7 g/dL (6.2-8.2)
== END | disposition home or self-care (01) ==
LOC: LABWHC1 14:20
DX: K70.31 Alcoholic cirrhosis of liver with ascites (principal); I10 Essential (primary) hypertension; D64.9 Anemia, unspecified
CPT/HCPCS: 36415; 80053; 80061; 84443; 85025

== ENCOUNTER → 2019-06-22 | Outpatient (CLI) | payer OTHER ==
[2019-06-22 19:08] LABS: ALT 33 U/L (8-44); AST 34 U/L (13-35); Albumin/Globulin Ratio 1.91 (1.60-3.17); Alkaline Phosphatase 89 U/L (41-126); Bilirubin, Conjugated <0.20 mg/dL (0.20-0.40); Globulin 2.3 g/dL (1.6-3.3); Total Bilirubin 0.4 mg/dL (0.2-1.2); Total Protein 6.7 g/dL (6.2-8.2)
== END | disposition home or self-care (01) ==
LOC: LABWHC1 12:12
PROVIDERS: ATTEND Psychiatry & Neurology Psychiatry
DX: Z51.81 Encounter for therapeutic drug level monitoring (principal); Z79.899 Other long term (current) drug therapy
CPT/HCPCS: 36415; 80076

== ENCOUNTER → 2019-11-26 | Outpatient (CLI) | payer OTHER ==
--- NOTE | 2019-11-26 12:12 | XR ---
EXAMINATION TYPE: XR shoulder complete LT DATE OF EXAM: 11/26/2019 COMPARISON: 02/23/2012 HISTORY: Pain TECHNIQUE: Three views are submitted. FINDINGS: The osseous structures are intact. There is no acute fracture or dislocation. The AC joint is maint ained. IMPRESSION: 1. No acute process.
== END | disposition home or self-care (01) ==
LOC: RADXRMAIN 11:52
PROVIDERS: ATTEND Family Medicine
DX: M60.812 Other myositis, left shoulder (principal)

== ENCOUNTER 2019-12-21 11:21 | Emergency (ER) | payer OTHER ==
[2019-12-21 11:28] VITALS: TEMP 97.9
[2019-12-21] MEDS ORDERED: PROMETHAZINE INJ 25 MG in SODIUM CHLORIDE 0.9% 50 ML IVPB STA (11:38)
[2019-12-21] MEDS ORDERED: MAGNESIUM SULFATE-D5W PMX 1 GM in DEXTROSE/WATER 1 100ML.BAG IVPB ONE (11:38)
[2019-12-21] MEDS ORDERED: diphenhydrAMINE 50 MG/ML 1 ML VIAL IVP STA (11:38)
[2019-12-21] MEDS ORDERED: SODIUM CHLORIDE 0.9% 500 ML 500 ML IV ONE (11:38)
--- NOTE | 2019-12-21 11:41 | ED ---
General Adult HPI - General Chief complaint: Headache Stated complaint: Head Ache High BP Time Seen by Provider: 12/21/19 11:25 Source: patient, RN notes reviewed, old records reviewed Mode of arrival: ambulatory Limitations: no limitations - History of Present Illness Initial comments: This is a 43-year-old female who presents emergency department with past medical history significant for alcoholism. Patient states she's been off alcohol for 1 month. Patient also states she has a history of high blood pressure. Patient states this morning she woke up she had a bad headache patient states she has had headaches in the past. Patient states her blood pressure was elevated at this time. Patient states she took her blood pressure medications and since the blood pressures come down but the headache is still only slightly improved. Patient denies any blurred vision patient denies any numbness or weakness. Patient denies any neck stiffness. Patient denies sudden onset of the headache. Patient states it gradually came on and got worse. Patient denies any recent fever chills or cough. Patient states she did vomit this morning. Patient denies any abdominal pain patient denies any diarrhea. - Related Data Home Medications Medication Instructions Recorded Confirmed Omeprazole 40 mg PO DAILY 04/15/19 12/21/19 Disulfiram 250 mg PO DAILY 12/21/19 12/21/19 Folic Acid 2 mg PO DAILY 12/21/19 12/21/19 Ketofast 1 cap PO DAILY 12/21/19 12/21/19 Melatonin 5 mg PO HS PRN 12/21/19 12/21/19 Metoprolol Tartrate [Lopressor] 25 mg PO BID 12/21/19 12/21/19 lamoTRIgine [LaMICtal] 25 mg PO DAILY 12/21/19 12/21/19 traMADol HCL 50 mg PO DAILY PRN 12/21/19 12/21/19 traZODone HCL 300 mg PO HS 12/21/19 12/21/19 Allergies Allergy/AdvReac Type Severity Reaction Status Date / Time Penicillins Allergy Unknown Verified 12/21/19 11:53 ibuprofen AdvReac patient Verified 12/21/19 11:53 has ulcer Review of Systems ROS Statement: Those systems with pertinent positive or pertinent negative responses have been documented in the HPI. ROS Other: All systems not noted in ROS Statement are negative. 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 Patient is nontoxic and well- hydrated and is in no acute distress. Patient's talking a mile a minute and sitting up in bed and doesn't appear to be in any distress whatsoever ENT: Neck is soft and supple. No significant lymphadenopathy is noted. Oropharynx is clear. Moist mucous membranes. Neck has full range of motion without eliciting any pain. EYES: The sclera were anicteric and conjunctiva were pink and moist. Extraocular movements were intact and pupils were equal round and reactive to light. Eyelids were unremarkable. PULMONARY: Unlabored respirations. Good breath sounds bilaterally. No audible rales rhonchi or wheezing was noted. CARDIOVASCULAR: There is a regular rate and rhythm without any murmurs gallops or rubs. ABDOMEN: Soft and nontender with normal bowel sounds. SKIN: Skin is clear with no lesions or rashes and otherwise unremarkable. NEUROLOGIC: Patient is alert and oriented x3. Cranial nerves II through XII are grossly intact. Motor and sensory are also intact. Normal speech, volume and content. Symmetrical smile. MUSCULOSKELETAL: Normal extremities with adequate strength and full range of motion. LYMPHATICS: No significant lymphadenopathy is noted PSYCHIATRIC: Normal psychiatric evaluation. Limitations: no limitations Course Vital Signs 12/21/19 11:27 Temperature 97.9 F Pulse Rate 94 Respiratory 20 Rate Blood Pressure 134/87 O2 Sat by Pulse 99 Oximetry Medical Decision Making - Medical Decision Making CT of the brain shows no acute abnormality. Patient is hypomagnesemic so I gave the patient 1 g of magnesium sulfate. I gave the patient Phenergan and Toradol and Benadryl for the headache. I went back and reevaluated the patient she was feeling considerably better. - Lab Data Result diagrams: 12/21/19 11:51 Lab Results 12/21/19 12/21/19 Range/Units 11:51 11:51 WBC 10.3 (3.8-10.6) k/uL RBC 4.04 (3.80-5.40) m/uL Hgb 11.5 (11.4-16.0) gm/dL Hct 35.4 (34.0-46.0) % MCV 87.6 (80.0-100.0) fL MCH 28.5 (25.0-35.0) pg MCHC 32.6 (31.0-37.0) g/dL RDW 16.5 H (11.5-15.5) % Plt Count 309 (150-450) k/uL Neutrophils % 58 % Lymphocytes % 32 % Monocytes % 5 % Eosinophils % 2 % Basophils % 1 % Neutrophils # 6.0 (1.3-7.7) k/uL Lymphocytes # 3.3 (1.0-4.8) k/uL Monocytes # 0.6 (0-1.0) k/uL Eosinophils # 0.2 (0-0.7) k/uL Basophils # 0.1 (0-0.2) k/uL Anisocytosis Slight Magnesium 1.5 L (1.6-2.3) mg/dL Serum Alcohol <10 mg/dL Disposition Clinical Impression: Acute headache, Hypomagnesemia Disposition: HOME SELF-CARE Condition: Good Instructions (If sedation given, give patient instructions): Acute Headache (ED) Is patient prescribed a controlled substance at d/c from ED?: No Referrals: Jackson Reza MD [Primary Care Provider] - 1-2 days Time of Disposition: 13:04
[2019-12-21 12:16] LABS: Anisocytosis Slight; Basophils # (A) 0.1 k/uL (0-0.2); Basophils % (A) 1 %; Eosinophils # (A) 0.2 k/uL (0-0.7); Eosinophils % (A) 2 %; HCT 35.4 % (34.0-46.0); HGB 11.5 gm/dL (11.4-16.0); Lymphocytes # (A) 3.3 k/uL (1.0-4.8); Lymphocytes % (A) 32 %; MCH 28.5 pg (25.0-35.0); MCHC 32.6 g/dL (31.0-37.0); MCV 87.6 fL (80.0-100.0); Mean Platelet Volume 7.1; Monocytes # (A) 0.6 k/uL (0-1.0); Monocytes % (A) 5 %; Neutrophils % (A) 58 %; Platelet Count 309 k/uL (150-450); RBC 4.04 m/uL (3.80-5.40); RDW 16.5 % (11.5-15.5); WBC 10.3 k/uL (3.8-10.6)
--- NOTE | 2019-12-21 12:31 | CT ---
EXAMINATION TYPE: CT brain wo con DATE OF EXAM: 12/21/2019 HISTORY: Acute Headache CT DLP: 1119.4 mGycm. Automated Exposure Control for Dose Reduction was Utilized. TECHNIQUE: CT scan of the head is performed without contrast. COMPARISON: CT brain 10/02/2016 FINDINGS: There is no acute intracranial hemorrhage, midline shift, or mass effect identified. Brain parenchyma appears normal. The ventricles, sulci, and cisterns are normal in size and configuration. No extra-axial fluid collection. Bones and extracranial soft tissues are intact. The globes are gross ly symmetric. Visualized sinuses and mastoid air cells are clear. IMPRESSION: No acute intracranial hemorrhage, midline shift, or mass effect.
[2019-12-21 13:01] LABS: Alcohol <10 mg/dL; Magnesium 1.5 mg/dL (1.6-2.3)
[2019-12-21 13:38] VITALS: BP 128/79; PULSE 72; RESP 18
== END 2019-12-21 13:25 | disposition home or self-care (01) ==
LOC: EC 11:21
DX: E83.42 Hypomagnesemia (principal); R51 Headache; F41.9 Anxiety disorder, unspecified; F31.9 Bipolar disorder, unspecified; F17.200 Nicotine dependence, unspecified, uncomplicated; I10 Essential (primary) hypertension; Z88.0 Allergy status to penicillin; Z88.6 Allergy status to analgesic agent
CPT/HCPCS: 36415; 70450; 80320; 83735; 85025; 96365; 96367; 96375; 99284

== ENCOUNTER → 2019-12-28 | Outpatient (CLI) | payer OTHER ==
[~2019-12-28] MED LIST: REGADENOSON 0.4 MG/5 ML SYRINGE IV ONE
--- NOTE | 2019-12-28 10:25 | P.STRESS ---
- Stress Test Note Stress Test Results/Findings: Exam Performed: NM stress lexiscan cardiolite Exam Date: 12/28/19 Reason for Exam: CHEST PAIN Height: 5 ft 3 in Weight: 162 kg Protocol: LEXISCAN Stage: NA Duration of Exercise: NA Resting Heart Rate: 82 Resting Blood Pressure: 113/69 Maximum Achieved Heart Rate: 93 Maximum Achieved Blood Pressure: 121/68 85% PMHR: NA 100% PMHR: NA METS: NA Technologist Comment: Stress Test Results/Findings: This is a 43-year-old female with history of hypertension, smoking, family history of ischemic heart disease being evaluated for symptoms of chest pain or shortness of breath and also palpitations. Stress data: Baseline EKG showed sinus rhythm with normal NH interval and QRS duration. Blood pressure at rest is 113/69 with pulse rate of 80 to. A standard dose of Lexiscan was infused. EKGs taken during and after the infusion did not reveal an significant changes from the baseline. Final impression: #1. Negative Lexiscan stress test #2. Report on the nuclear portion of the test to be provided by the radiologist.
--- NOTE | 2019-12-28 11:37 | NM ---
EXAMINATION TYPE: NM stress lexiscan cardiolite DATE OF EXAM: 12/28/2019 COMPARISON: NONE HISTORY: Chest pain TECHNIQUE: After the intravenous administration of 9.26 mCi Tc 99m Sestamibi - Cardiolite resting SP ECT images acquired 45 minutes post injection. The patient received 0.4mg Lexiscan, 26.2 mCi Tc 99m Sestamibi - Stress images obtained [address] injection FINDINGS: Review of stress and rest SPECT images demonstrates decreased uptake along the anterolateral left rudy tricle more so on rest images than on stress images and extending into the apex. Gated analysis show s normal wall motion with an estimated left ventricular ejection fraction of 62 %. IMPRESSION: No scintigraphic evidence for a pharmacologically induced reversible ischemia. 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
--- NOTE | 2019-12-28 13:21 | EST ---
Stress Test Results/Findings: Exam Performed: NM stress lexiscan cardiolite Exam Date: 12/28/19 Reason for Exam: CHEST PAIN Height: 5 ft 3 in Weight: 162 kg Protocol: LEXISCAN Stage: NA Duration of Exercise: NA Resting Heart Rate: 82 Resting Blood Pressure: 113/69 Maximum Achieved Heart Rate: 93 Maximum Achieved Blood Pressure: 121/68 85% PMHR: NA 100% PMHR: NA METS: NA Technologist Comment: Stress Test Results/Findings: This is a 43-year-old female with history of hypertension, smoking, family history of ischemic heart disease being evaluated for symptoms of chest pain or shortness of breath and also palpitations. Stress data: Baseline EKG showed sinus rhythm with normal MD interval and QRS duration. Blood pressure at rest is 113/69 with pulse rate of 80 to. A standard dose of Lexiscan was infused. EKGs taken during and after the infusion did not reveal an significant changes from the baseline. Final impression: #1. Negative Lexiscan stress test #2. Report on the nuclear portion of the test to be provided by the radiologist. AMOS
== END | disposition home or self-care (01) ==
LOC: RADNMMAIN 08:09
PROVIDERS: ATTEND Family Medicine
DX: R07.9 Chest pain, unspecified (principal)
CPT/HCPCS: 93017; 78452; A9500; J2785

== ENCOUNTER 2019-12-31 00:06 | Emergency (ER) | payer OTHER ==
[2019-12-31 00:34] VITALS: RESP 18
[2019-12-31] MEDS ORDERED: HYDROcodone/APAP 5-325MG 1 EACH TAB PO STA (00:49)
--- NOTE | 2019-12-31 01:20 | XR ---
EXAMINATION TYPE: XR ankle complete LT DATE OF EXAM: 12/31/2019 COMPARISON: NONE HISTORY: Pain TECHNIQUE: 3 views FINDINGS: There is no sign of fracture nor dislocation. Joint spaces are normal. Soft tissues appear normal. IMPRESSION: Normal left ankle.
--- NOTE | 2019-12-31 01:21 | XR ---
EXAMINATION TYPE: XR foot complete LT DATE OF EXAM: 12/31/2019 COMPARISON: NONE HISTORY: Foot pain TECHNIQUE: 3 views FINDINGS: Metatarsals are intact. I see no fracture nor dislocation. Joint spaces are normal. IMPRESSION: Negative left foot exam. No fracture.
--- NOTE | 2019-12-31 01:28 | ED ---
Extremity Problem HPI - General Chief complaint: Extremity Problem,Nontraumatic Stated complaint: Left ankle/foot pain Time Seen by Provider: 12/31/19 00:36 Source: patient Mode of arrival: wheelchair Limitations: no limitations - History of Present Illness Initial comments: This patient is a 44-year-old woman who presents to have evaluation of her left ankle. Patient states that 2 or 3 hours ago now started having increasing pain. She states that she did "snap" her ankle couple of days ago but that it wasn't causing significant pain. She has been fairly active over today and that started tonight. Patient denies any other or systemic symptoms. No weakness or numbness of the leg or foot. MD Complaint: extremity swelling -: hour(s) Location: left, lower extremity History of Same: No Quality: aching Consistency: constant Improves with: nothing Worsens with: weight bearing - Related Data Home Medications Medication Instructions Recorded Confirmed Omeprazole 40 mg PO DAILY 04/15/19 12/21/19 Disulfiram 250 mg PO DAILY 12/21/19 12/21/19 Folic Acid 2 mg PO DAILY 12/21/19 12/21/19 Ketofast 1 cap PO DAILY 12/21/19 12/21/19 Melatonin 5 mg PO HS PRN 12/21/19 12/21/19 Metoprolol Tartrate [Lopressor] 25 mg PO BID 12/21/19 12/21/19 lamoTRIgine [LaMICtal] 25 mg PO DAILY 12/21/19 12/21/19 traMADol HCL 50 mg PO DAILY PRN 12/21/19 12/21/19 traZODone HCL 300 mg PO HS 12/21/19 12/21/19 Previous Rx's Medication Instructions Recorded predniSONE [Deltasone] 20 mg PO BID #8 tab 12/31/19 Allergies Allergy/AdvReac Type Severity Reaction Status Date / Time Penicillins Allergy Unknown Verified 12/31/19 00:34 ibuprofen AdvReac patient Verified 12/31/19 00:34 has ulcer Review of Systems ROS Statement: Those systems with pertinent positive or pertinent negative responses have been documented in the HPI. ROS Other: All systems not noted in ROS Statement are negative. 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), 3 left rotator cuff surgeries Past Anesthesia/Blood Transfusion Reactions: No Reported Reaction Past Psychological History: ADD/ADHD, Anxiety, Bipolar, Depression Smoking Status: Current every day smoker Past Alcohol Use History: Abuse, Daily, Heavy Past Drug Use History: None Reported - Past Family History Father Family Medical History: Congestive Heart Failure (CHF) General Exam Limitations: no limitations General appearance: alert, in no apparent distress Head exam: Present: atraumatic, normocephalic Cardiovascular Exam: Present: other (Stronger dorsalis pedis pulse area capillary refill normal.) Left Lower Leg exam: Present: normal inspection, full ROM. Absent: tenderness, swelling Ankle exam: Present: normal inspection, tenderness. Absent: full ROM, swelling, abrasion, laceration, ecchymosis, deformity, crepitus, dislocation, erythema Foot/Toe exam: Present: normal inspection, full ROM. Absent: tenderness, sw elling, abrasion, laceration, ecchymosis, deformity Neurovascular tendon exam: Present: no vascular compromise. Absent: pulse deficit, abnormal cap refill, motor deficit, sensory deficit, tendon deficit, extremity cold to touch Neurological exam: Present: alert. Absent: motor sensory deficit Skin exam: Present: warm, dry, intact, normal color. Absent: rash Course Vital Signs 12/31/19 00:32 Temperature 98 F Pulse Rate 103 H Respiratory 18 Rate Blood Pressure 130/95 O2 Sat by Pulse 98 Oximetry Disposition Clinical Impression: Ankle sprain Disposition: HOME SELF-CARE Condition: Good Instructions (If sedation given, give patient instructions): Ankle Sprain (ED) Prescriptions: predniSONE [Deltasone] 20 mg PO BID #8 tab Is patient prescribed a controlled substance at d/c from ED?: No Referrals: Jackson Reza MD [Primary Care Provider] - 1-2 days
[2019-12-31] MEDS ORDERED: diphenhydrAMINE 50 MG/ML 1 ML VIAL IM STA (01:37)
[2019-12-31 02:06] VITALS: BP 122/77; PULSE 64; TEMP 97.4
== END 2019-12-31 02:06 | disposition home or self-care (01) ==
LOC: EC 00:06
DX: S93.402A Sprain of unspecified ligament of left ankle, initial encounter (principal); F41.9 Anxiety disorder, unspecified; F10.10 Alcohol abuse, uncomplicated; F31.9 Bipolar disorder, unspecified; I10 Essential (primary) hypertension; G40.909 Epilepsy, unspecified, not intractable, without status epilepticus; K25.9 Gastric ulcer, unspecified as acute or chronic, without hemorrhage or perforation; F17.200 Nicotine dependence, unspecified, uncomplicated; Z88.0 Allergy status to penicillin; Z88.6 Allergy status to analgesic agent; Z79.899 Other long term (current) drug therapy; X50.9XXA Other and unspecified overexertion or strenuous movements or postures, initial encounter
CPT/HCPCS: 73610; 73630; 96372; 99283; J1200

== ENCOUNTER 2020-01-03 15:41 | Observation (INO) | payer OTHER ==
[2020-01-03 16:15] LABS: Anisocytosis Slight; Basophils # (A) 0.1 k/uL (0-0.2); Basophils % (A) 1 %; Eosinophils # (A) 0.1 k/uL (0-0.7); Eosinophils % (A) 2 %; HCT 35.2 % (34.0-46.0); HGB 11.4 gm/dL (11.4-16.0); Lymphocytes # (A) 2.9 k/uL (1.0-4.8); Lymphocytes % (A) 31 %; MCH 27.7 pg (25.0-35.0); MCHC 32.2 g/dL (31.0-37.0); MCV 86.1 fL (80.0-100.0); Mean Platelet Volume 6.9; Monocytes # (A) 0.4 k/uL (0-1.0); Monocytes % (A) 4 %; Neutrophils # (A) 5.7 k/uL (1.3-7.7); Neutrophils % (A) 61 %; Platelet Count 274 k/uL (150-450); RBC 4.09 m/uL (3.80-5.40); WBC 9.4 k/uL (3.8-10.6)
--- NOTE | 2020-01-03 16:20 | XR ---
EXAMINATION TYPE: XR chest 2V DATE OF EXAM: 01/03/2020 COMPARISON: 09/08/2016 INDICATION: Indigestion and tightness of the chest TECHNIQUE: Frontal and lateral views of the chest are obtained. FINDINGS: The heart size is normal. The pulmonary vasculature is normal. The lungs are clear. IMPRESSION: 1. No acute pulmonary process.
[2020-01-03 16:23] LABS: INR 0.9 (<1.2); Prothrombin Time 9.8 sec (9.0-12.0)
[2020-01-03 16:26] LABS: ALT 11 U/L (4-34); AST 24 U/L (14-36); African American GFR (CKD) >90 (>60 ml/min/1.73 sqM); Albumin 4.3 g/dL (3.5-5.0); Alkaline Phosphatase 72 U/L (38-126); Anion Gap 8 mmol/L; Blood Urea Nitrogen 10 mg/dL (7-17); Calcium 9.7 mg/dL (8.4-10.2); Carbon Dioxide 18 mmol/L (22-30); Chloride 110 mmol/L (98-107); Glucose 108 mg/dL (74-99); Magnesium 1.7 mg/dL (1.6-2.3); Non-African American GFR(CKD) >90 (>60 ml/min/1.73 sqM); Potassium 3.9 mmol/L (3.5-5.1); Sodium 136 mmol/L (137-145); Total Bilirubin 0.6 mg/dL (0.2-1.3); Total Protein 7.6 g/dL (6.3-8.2)
[2020-01-03] MEDS ORDERED: NALOXONE 0.4 MG/ML 1 ML VIAL IV PRN (17:13)
[2020-01-03] MEDS ORDERED: HYDROcodone/APAP 5-325MG 1 EACH TAB PO PRN (17:13)
[2020-01-03] MEDS ORDERED: ASPIRIN 81 MG PO STA (17:13)
--- NOTE | 2020-01-03 17:13 | ED ---
Chest Pain HPI - General Chief Complaint: Chest Pain Stated Complaint: chest pain/heart burn Time Seen by Provider: 01/03/20 15:45 Source: patient Mode of arrival: ambulatory Limitations: no limitations - History of Present Illness Initial Comments: 44-year-old female presents emergency room with reported chest pain. States it occurred 15-20 minutes prior to arrival. Describes it as a mid epigastric pain. She thought it was reflux for which she does have a large history of. Pain was persistent for 20 minutes so she decided to come into the emergency room for evaluation. She has patient Dr. Piper. He saw her this summer and completed a stress test. It demonstrated that she had previous infarcts and so she was told any time she had chest pain that she should come immediately into the emergency room for evaluation. She admits associated nausea without vomiting. Also had paresthesias in her hand. Pain is completely resolved at this time. Denies cough. No calf pain or swelling. No abdominal pain. No concern for . No other alleviating, Perceptin or modifying factors - Related Data Home Medications Medication Instructions Recorded Confirmed Omeprazole 40 mg PO DAILY 04/15/19 01/03/20 Folic Acid 2 mg PO DAILY 12/21/19 01/03/20 Metoprolol Tartrate [Lopressor] 25 mg PO BID 12/21/19 01/03/20 traMADol HCL 50 mg PO DAILY PRN 12/21/19 01/03/20 traZODone HCL 300 mg PO HS 12/21/19 01/03/20 Previous Rx's Medication Instructions Recorded predniSONE [Deltasone] 20 mg PO BID #8 tab 12/31/19 Nicotine 21Mg/24Hr Patch [Habitrol] 1 patch TRANSDERM DAILY 30 Days 01/04/20 #30 patch lamoTRIgine [LaMICtal] 50 mg PO BID tab 01/04/20 Allergies Allergy/AdvReac Type Severity Reaction Status Date / Time Penicillins Allergy Unknown Verified 01/03/20 18:36 ibuprofen AdvReac patient Verified 01/03/20 18:36 has ulcer Review of Systems ROS Statement: Those systems with pertinent positive or pertinent negative responses have been documented in the HPI. ROS Other: All systems not noted in ROS Statement are negative. EKG Findings - EKG Comments: EKG Findings:: EKG demonstrates a normal sinus rhythm with a ventricular rate of 84. OR interval 168. QRS 76. QTC of 465. No acute ST segment elevations or depressions concerning for ischemic changes Past Medical History Past Medical History: Asthma, COPD, Hypertension, Myocardial Infarction ([place]), Seizure Disorder Additional Past Medical History / Comment(s): gastric ulcer, emphysema, seizure after stopping etoh use History of Any Multi-Drug Resistant Organisms: None Reported Past Surgical History: Orthopedic Surgery Additional Past Surgical History / Comment(s): TMJ (jaw was locked), 3 left rotator cuff surgeries Past Anesthesia/Blood Transfusion Reactions: No Reported Reaction Past Psychological History: ADD/ADHD, Anxiety, Bipolar, Depression Smoking Status: Current every day smoker Past Alcohol Use History: None Reported Past Drug Use History: None Reported - Past Family History Father Family Medical History: Congestive Heart Failure (CHF) General Exam Limitations: no limitations General appearance: alert, in no apparent distress Head exam: Present: atraumatic, normocephalic, normal inspection Eye exam: Present: normal appearance, PERRL, EOMI. Absent: scleral icterus, conjunctival injection, periorbital swelling ENT exam: Present: normal exam, mucous membranes moist Neck exam: Present: normal inspection. Absent: tenderness, meningismus, lymphadenopathy Respiratory exam: Present: normal lung sounds bilaterally. Absent: respiratory distress, wheezes, rales, rhonchi, stridor Cardiovascular Exam: Present: regular rate, normal rhythm, normal heart sounds. Absent: systolic murmur, diastolic murmur, rubs, gallop, clicks GI/Abdominal exam: Present: soft, normal bowel sounds. Absent: distended, tenderness, guarding, rebound, rigid Extremities exam: Present: normal inspection, full ROM, normal capillary refill. Absent: tenderness, pedal edema, joint swelling, calf tenderness Back exam: Present: normal inspection Neurological exam: Present: alert, oriented X3, CN II-XII intact Psychiatric exam: Present: normal affect, normal mood Skin exam: Present: warm, dry, intact, normal color. Absent: rash Course Vital Signs 01/03/20 01/03/20 15:46 17:00 Temperature 98.2 F Pulse Rate 91 80 Respiratory 18 18 Rate Blood Pressure 153/98 126/93 O2 Sat by Pulse 99 100 Oximetry Chest Pain MDM - MDM Upon arrival patient was placed into room 7. A thorough history and physical exam was performed. Lab studies are conducted and the patient went for a chest x-ray. Laboratory studies are unremarkable. Troponin is negative. Chest x-ray demonstrates no acute findings. As the patient has had a previous history of infarct I did recommend hospital admission in order to trend troponins. Patient agreed to this. A call discuss case with Dr. Alegre who accepted admission. She was transferred when stable condition Disposition Clinical Impression: Chest pain Disposition: ADMITTED IP TO THIS [facility] Condition: Stable Is patient prescribed a controlled substance at d/c from ED?: No Decision to Admit Reason: Admit from EC Decision Date: 01/03/20 Decision Time: 17:13
[2020-01-03] MEDS ORDERED: NICOTINE 21MG/24HR PATCH TRANSDERM STA (17:21)
[2020-01-03] MEDS ORDERED: KETOROLAC 15 MG/ML 1 ML VIAL IVP PRN (18:34)
[2020-01-03] MEDS: HYDROcodone/APAP 5-325MG 1 EACH TAB PO PRN (19:45)
[2020-01-03] MEDS ORDERED: traZODone HCL 100 MG TAB PO SCH (21:00)
[2020-01-03] MEDS: predniSONE 20 MG TAB PO SCH (21:07)
[2020-01-03] MEDS: METOPROLOL TARTRATE 25 MG TAB PO SCH (21:07)
--- NOTE | 2020-01-03 22:17 | HP ---
HISTORY AND PHYSICAL This patient is a 44-year-old white female who came in with atypical chest pain versus GERD about 15 to 20 minutes prior to her arrival. She was unsure if it was heartburn or not. She has a history of reflux. She had a stress test at home which showed a high ejection fraction and also showed possible she is going to get an echo while she is here. She has some nausea without vomiting, paresthesias in her hand, history of alcoholism, but she has not had a drink in 30 days. She is on Lamictal 50 b.i.d. for bipolar. No abdominal pain. No . No calf pain. No hemoptysis. MEDICATIONS: Omeprazole 40 daily, folic acid 2 mg daily, Lopressor 25 b.i.d., Lamictal 50 b.i.d., tramadol 50 daily p.r.n., trazodone 300 at bedtime. ALLERGIES: PENICILLIN, IBUPROFEN. REVIEW OF SYSTEMS: Fourteen-point review of systems negative except for mentioned in HPI. PAST MEDICAL HISTORY: Asthma, COPD, alcoholism, ADHD, bipolar, seizure disorder, myocardial infarction, hypertension, COPD, gastric ulcer, emphysema, seizure. FAMILY HISTORY: Father with congestive heart failure. PHYSICAL EXAMINATION: Temperature 98.2, pulse 80s to 90s, respiratory rate 18 to 20, blood pressure 120s to 150s over 90s, O2 99% to 100%. GI: Tenderness to palpation, epigastric. No chest wall tenderness. CARDIOVASCULAR: S1, S2. LUNGS: Transmitted upper airway sounds. HEMATOLOGY: Negative Homans. PSYCH: Fair mood and affect. ASSESSMENT: 1. Atypical chest pain, possibly prior myocardial infarction history. 2. Nicotine addiction. 3. Alcoholism. 4. Bipolar. 5. Severe anxiety. Rule out myocardial infarction. Order echo. Cardiology consult. Repeat troponins. Prognosis guarded. Continue home medicines. MMODL / IJN: [id number] /
[2020-01-04 01:23] LABS: T4, Free (Free Thyroxine) 1.04 ng/dL (0.78-2.19)
[2020-01-04 08:01] VITALS: BP 152/104; PULSE 103; RESP 16; TEMP 97.5
[2020-01-04] MEDS: METOPROLOL TARTRATE 25 MG TAB PO SCH (08:04)
[2020-01-04] MEDS: predniSONE 20 MG TAB PO SCH (08:05)
[2020-01-04] MEDS: HYDROcodone/APAP 5-325MG 1 EACH TAB PO PRN ×2 (08:05→13:29)
[2020-01-04 08:34] LABS: Anisocytosis Slight; Basophils % (A) 0 %; Eosinophils % (A) 0 %; HCT 36.7 % (34.0-46.0); HGB 11.8 gm/dL (11.4-16.0); Lymphocytes # (A) 1.4 k/uL (1.0-4.8); Lymphocytes % (A) 14 %; MCH 28.2 pg (25.0-35.0); MCHC 32.3 g/dL (31.0-37.0); MCV 87.5 fL (80.0-100.0); Mean Platelet Volume 7.1; Monocytes # (A) 0.2 k/uL (0-1.0); Monocytes % (A) 2 %; Neutrophils # (A) 8.4 k/uL (1.3-7.7); Neutrophils % (A) 82 %; Platelet Count 287 k/uL (150-450); RBC 4.19 m/uL (3.80-5.40); RDW 16.9 % (11.5-15.5); WBC 10.2 k/uL (3.8-10.6)
[2020-01-04 08:48] LABS: African American GFR (CKD) >90 (>60 ml/min/1.73 sqM); Anion Gap 9 mmol/L; Blood Urea Nitrogen 17 mg/dL (7-17); Calcium 9.5 mg/dL (8.4-10.2); Carbon Dioxide 19 mmol/L (22-30); Chloride 109 mmol/L (98-107); Glucose 156 mg/dL (74-99); Non-African American GFR(CKD) >90 (>60 ml/min/1.73 sqM); Potassium 4.4 mmol/L (3.5-5.1); Sodium 137 mmol/L (137-145)
[2020-01-04] MEDS ORDERED: FOLIC ACID 1 MG TAB PO SCH (09:00)
[2020-01-04] MEDS ORDERED: lamoTRIgine 25 MG TAB PO SCH ×2 (09:00)
[2020-01-04] MEDS ORDERED: NICOTINE 21MG/24HR PATCH TRANSDERM SCH (09:00)
[2020-01-04] MEDS ORDERED: PANTOPRAZOLE 40 MG TABLET PO SCH (09:00)
--- NOTE | 2020-01-04 09:57 | P.CRDCN ---
History of Present Illness History of present illness: HISTORY OF PRESENTING ILLNESS This is a pleasant 44-year-old female past medical history significant for COPD, gastric ulcer, chronic daily alcohol abuse, hypertension and chornic nicotine dependence. 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 She has been experiencing chest pain in the mid-sternal region described as a burning sensation for quite some time now. She states she has a known ulcer in her stomach and takes omeperazole daily. Most days she takes more often than daily due to persistent pain. Given her pain Dr. Reza sent her for a stress test last week. The stress test was negative for reversible ischemia with possible old inferior wall infarction. She states she saw him in the office and received 3. The for test. There is a possibility she had an old myocardial infarction. This information caused her some significant stress and anxiety y esterday while driving she felt a burning sensation in the midsternal region typical to how she slept in the past with her reflux disease however given her recent information she became alarmed and presented to the hospital for further evaluation. She states the discomfort lasted for approximately 5 minutes and subsided prior to arrival to the hospital. She denies any radiation to the arm, back, neck or jaw. She denies associated shortness of breath, dizziness, palpitations, nausea, vomiting or diaphoresis. She has any further symptoms of chest discomfort since arriving at the hospital. DIAGNOSTICS EKG reveals sinus mechanism. Chest xray negative for an acute cardiopulmonary process. Laboratory reviewed, WBC 10.2, hemoglobin 11.8, platelets 287, sodium 137, potassium 4.4, creatinine 0.71, magnesium 1.7, cardiac enzymes negative 3, NT proBNP 116, TSH 4.69. Current cardiac medications include Lopressor 25 mg twice a day. REVIEW OF SYSTEMS At the time of my exam: CONSTITUTIONAL: Denies fever or chills. CARDIOVASCULAR: Denies chest pain, shortness of breath, orthopnea, PND or palpitations. RESPIRATORY: Denies cough. GASTROINTESTINAL: Denies abdominal pain, diarrhea, constipation, nausea or vomiting. MUSCULOSKELETAL: Denies myalgias. NEUROLOGIC: Denies numbness, tingling or weakness. ENDOCRINE: Denies fatigue, weight change, polydipsia or polyurina. GENITOURINARY: Denies burning, hematuria or urgency with micturation. HEMATOLOGIC: Denies history of anemia or bleeding. PHYSICAL EXAMINATION Blood pressure 152/104 heart rate 103 afebrile and maintaining oxygen saturation on room air. CONSTITUTIONAL: No apparent distress. HEENT: Head is normocephalic. Pupils are equal, round. Sclerae anicteric. Mucous membranes of the mouth are moist. No JVD. No carotid bruit. CHEST EXAMINATION: Lungs are clear to auscultation. No chest wall tenderness is noted on palpation or with deep breathing. HEART EXAMINATION: Regular rate and rhythm. S1, S2 heard. No murmurs, gallops or rub. ABDOMEN: Soft, nontender. Positive bowel sounds. EXTREMITIES: 2+ peripheral pulses, no lower extremity edema and no calf tenderness. NEUROLOGIC EXAMINATION: Patient is awake, alert and oriented x3. ASSESSMENT Chest pain, atypical. An acute coronary event has been ruled out. COPD Hypertension Daily alcohol use Chronic nicotine dependence PLAN An acute coronary event has been ruled out. Recent stress test is negative for reversible cardiac ischemia. Pain is atypical related to angina likely related to underlying ulcer. Recommend further GI evaluation possibly repeat endoscopy or stronger and aspirin. Echocardiogram has been ordered and will be reviewed. Counseled the patient on alcohol and tobacco cessation. Thank you kindly for this consultation. Nurse Practitioner note has been reviewed, I agree with a documented findings and plan of care. Patient was seen and examined. 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), 3 left rotator cuff surgeries Past Anesthesia/Blood Transfusion Reactions: No Reported Reaction Past Psychological History: ADD/ADHD, Anxiety, Bipolar, Depression Smoking Status: Current every day smoker Past Alcohol Use History: None Reported Past Drug Use History: None Reported - Past Family History Father Family Medical History: Congestive Heart Failure (CHF) Medications and Allergies Home Medications Medication Instructions Recorded Confirmed Type Omeprazole 40 mg PO DAILY 04/15/19 01/03/20 History Folic Acid 2 mg PO DAILY 12/21/19 01/03/20 History Metoprolol Tartrate [Lopressor] 25 mg PO BID 12/21/19 01/03/20 History lamoTRIgine [LaMICtal] 50 mg PO DAILY 12/21/19 01/03/20 History traMADol HCL 50 mg PO DAILY PRN 12/21/19 01/03/20 History traZODone HCL 300 mg PO HS 12/21/19 01/03/20 History predniSONE [Deltasone] 20 mg PO BID #8 tab 12/31/19 01/03/20 Rx Allergies Allergy/AdvReac Type Severity Reaction Status Date / Time Penicillins Allergy Unknown Verified 01/03/20 18:36 ibuprofen AdvReac patient Verified 01/03/20 18:36 has ulcer Physical Exam Vitals: Vital Signs Temp Pulse Pulse Resp BP BP Pulse Ox 01/04/20 07:58 97.5 F L 103 H 16 152/104 96 01/04/20 04:30 98 F 71 18 134/88 97 01/03/20 19:25 98.1 F 94 20 133/93 99 01/03/20 18:18 97.9 F 88 18 156/91 97 01/03/20 17:00 80 18 126/93 100 01/03/20 15:46 98.2 F 91 18 153/98 99 Intake and Output 01/03/20 01/04/20 01/04/20 22:59 06:59 14:59 Intake Total 300 Balance 300 Intake: Oral 300 Other: Voiding Method Toilet Toilet # Voids 1 2 Weight 71.214 kg Results 01/04/20 07:48 01/04/20 07:48 Cardiac Enzymes 01/03/20 01/03/20 01/03/20 Range/Units 16:07 16:07 19:04 AST 24 (14-36) U/L Troponin I <0.012 <0.012 (0.000-0.034) ng/mL 01/03/20 Range/Units 22:04 AST (14-36) U/L Troponin I <0.012 (0.000-0.034) ng/mL Coagulation 01/03/20 Range/Units 16:07 PT 9.8 (9.0-12.0) sec APTT 24.0 (22.0-30.0) sec CBC 01/03/20 01/04/20 Range/Units 16:07 07:48 WBC 9.4 10.2 (3.8-10.6) k/uL RBC 4.09 4.19 (3.80-5.40) m/uL Hgb 11.4 11.8 (11.4-16.0) gm/dL Hct 35.2 36.7 (34.0-46.0) % Plt Count 274 287 (150-450) k/uL Comprehensive Metabolic Panel 01/03/20 01/04/20 Range/Units 16:07 07:48 Sodium 136 L 137 (137-145) mmol/L Potassium 3.9 4.4 (3.5-5.1) mmol/L Chloride 110 H 109 H (98-107) mmol/L Carbon Dioxide 18 L 19 L (22-30) mmol/L BUN 10 17 (7-17) mg/dL Creatinine 0.66 0.71 (0.52-1.04) mg/dL Glucose 108 H 156 H (74-99) mg/dL Calcium 9.7 9.5 (8.4-10.2) mg/dL AST 24 (14-36) U/L ALT 11 (4-34) U/L Alkaline Phosphatase 72 (38-126) U/L Total Protein 7.6 (6.3-8.2) g/dL Albumin 4.3 (3.5-5.0) g/dL Current Medications Generic Name Dose Route Start Last Admin Trade Name Freq PRN Reason Stop Dose Admin Hydrocodone Bitart/Acetaminophen 1 each 01/03/20 17:13 01/03/20 17:23 Hydrocodone/Apap 5-325mg 1 Each Tab PO 1 each Q4HR PRN Administration Moderate Pain Hydrocodone Bitart/Acetaminophen 2 each 01/03/20 18:35 01/04/20 08:05 Hydrocodone/Apap 5-325mg 1 Each Tab PO 2 each Q6HR PRN Administration Severe Pain Folic Acid 2 mg 01/04/20 09:00 01/04/20 08:05 Folic Acid 1 Mg Tab PO 2 mg DAILY JOHAN Administration Ketorolac Tromethamine 30 mg 01/03/20 18:34 01/03/20 18:43 Ketorolac 15 Mg/Ml 1 Ml Vial IVP 01/06/20 18:34 30 mg Q6HR PRN Administration Pain Lamotrigine 50 mg 01/04/20 09:00 01/04/20 08:06 Lamotrigine 25 Mg Tab PO 50 mg BID JOHAN Administration Metoprolol Tartrate 25 mg 01/03/20 21:00 01/04/20 08:04 Metoprolol Tartrate 25 Mg Tab PO 25 mg BID JOHAN Administration Naloxone HCl 0.2 mg 01/03/20 17:13 Naloxone 0.4 Mg/Ml 1 Ml Vial IV Q2M PRN Opioid Reversal Nicotine 1 patch 01/04/20 09:00 01/04/20 08:05 Nicotine 21mg/24hr Patch TRANSDERM 1 patch DAILY JOHAN Administration Pantoprazole Sodium 40 mg 01/04/20 09:00 01/04/20 08:04 Pantoprazole 40 Mg Tablet PO 40 mg DAILY JOHAN Administration Prednisone 20 mg 01/03/20 21:00 01/04/20 08:05 Prednisone 20 Mg Tab PO 20 mg BID JOHAN Administration Trazodone HCl 300 mg 01/03/20 21:00 01/03/20 21:07 Trazodone Hcl 100 Mg Tab PO 300 mg HS JOHAN Administration Intake and Output 01/03/20 01/04/20 01/04/20 22:59 06:59 14:59 Intake Total 300 Balance 300 Intake: Oral 300 Other: Voiding Method Toilet Toilet # Voids 1 2 Weight 71.214 kg 01/04/20 07:48 01/04/20 07:48
--- NOTE | 2020-01-04 19:18 | ECHOF ---
Referral Reason:cp MEASUREMENTS -------- HEIGHT: 160.0 cm WEIGHT: 71.2 kg BP: 134/88 RVIDd: 2.5 cm (< 3.3) IVSd: 1.0 cm (0.6 - 1.1) LVIDd: 4.0 cm (3.9 - 5.3) LVPWd: 1.6 cm (0.6 - 1.1) IVSs: 1.4 cm LVIDs: 2.6 cm LVPWs: 1.6 cm LA Diam: 4.2 cm (2.7 - 3.8) LAESV Index (A-L): 31.58 ml/m Ao Diam: 2.3 cm (2.0 - 3.7) AV Cusp: 1.7 cm (1.5 - 2.6) MV EXCURSION: 14.577 mm (> 18.000) MV EF SLOPE: 50 mm/s (70 - 150) EPSS: 0.4 cm MV E Kristopher: 0.67 m/s MV DecT: 216 ms MV A Kristopher: 0.71 m/s MV E/A Ratio: 0.94 RAP: 5.00 mmHg RVSP: 26.63 mmHg FINDINGS -------- Sinus rhythm. This was a technically good study. LV size, wall thickness and systolic function are normal, with an EF greater than 55%. The left rudy tricular size is normal. The right ventricle is normal in size. The left atrium is mildly dilated. LA is midly dilated 29-33ml/m2. The right atrial size is normal. The aortic valve is trileaflet, and appears structurally normal. No aortic stenosis or regurgitation. Mild mitral regurgitation is present. Mild tricuspid regurgitation present. Right ventricular systolic pressure is normal at < 35 mmHg. There is no pulmonic regurgitation present. The aortic root size is normal. Echo free space indicative of a pericardial fat pad. CONCLUSIONS -------- 1. LV size, wall thickness and systolic function are normal, with an EF greater than 55%. 2. The left ventricular size is normal. 3. The right ventricle is normal in size. 4. The left atrium is mildly dilated. 5. LA is midly dilated 29-33ml/m2. 6. The right atrial size is normal. 7. The aortic valve is trileaflet, and appears structurally normal. No aortic stenosis or regurgitati on. 8. Mild mitral regurgitation is present. 9. Mild tricuspid regurgitation present. 10. Echo free space indicative of a pericardial fat pad. BELL TIER: Garima Agudelo RDCS
== END 2020-01-04 16:11 ==
LOC: EC 15:41 → 3NCARDOBS 17:14
PROVIDERS: ADMIT Family Medicine; ATTEND Family Medicine
DX: R07.89 Other chest pain (principal); I10 Essential (primary) hypertension; J43.9 Emphysema, unspecified; F17.200 Nicotine dependence, unspecified, uncomplicated; R20.2 Paresthesia of skin; I25.2 Old myocardial infarction; K25.9 Gastric ulcer, unspecified as acute or chronic, without hemorrhage or perforation; Z82.49 Family history of ischemic heart disease and other diseases of the circulatory system; F41.9 Anxiety disorder, unspecified; F31.9 Bipolar disorder, unspecified; K21.9 Gastro-esophageal reflux disease without esophagitis; F10.21 Alcohol dependence, in remission; G40.89 Other seizures; Z79.52 Long term (current) use of systemic steroids; Z79.899 Other long term (current) drug therapy; Z88.6 Allergy status to analgesic agent; Z88.0 Allergy status to penicillin
CPT/HCPCS: 96374; 99285; 36415; 93306; 84439; 83880; 80053; 80048; 84443; 83690; 83735; 84484; 85025 ×2; 85610; 85730; 71046; G0378 ×2; S4990 ×2; J1885; J7512 ×2

== ENCOUNTER 2021-03-25 19:43 | Observation (INO) | payer OTHER ==
[2021-03-25] MEDS ORDERED: LORazepam 2 MG/ML INJ IV PRN (20:11)
[2021-03-25] MEDS ORDERED: SODIUM CHLORIDE 0.9% 2,000 ML IV ONE (20:11)
[2021-03-25] MEDS ORDERED: SODIUM CHLORIDE 0.9% 1,000 ML with THIAMINE 100 MG, FOLIC ACID 1 MG IV ONE ×3 (20:30)
--- NOTE | 2021-03-25 20:52 | ED ---
Alcohol HPI - General Chief Complaint: Alcohol Stated Complaint: ETOH Time Seen by Provider: 03/25/21 19:46 Source: patient, EMS, RN notes reviewed Mode of arrival: EMS Limitations: no limitations - History of Present Illness Initial Comments: This a 45-year-old female presents emergency Department with EMS for alcohol intoxication. Patient states she's been drinking very heavily over the last 2 weeks has not felt well. Patient states that she has a long history of depression, alcohol abuse. Denies being suicidal. Patient states that she just doesn't feel well she states that she just has multiple issues and is not providing much information. Patient denies chest pain or palpitations no localized abdominal pain. No reported fever. - Related Data Home Medications Medication Instructions Recorded Confirmed Omeprazole 40 mg PO DAILY 04/15/19 01/03/20 Folic Acid 2 mg PO DAILY 12/21/19 01/03/20 Metoprolol Tartrate [Lopressor] 25 mg PO BID 12/21/19 01/03/20 traMADol HCL 50 mg PO DAILY PRN 12/21/19 01/03/20 traZODone HCL 300 mg PO HS 12/21/19 01/03/20 Previous Rx's Medication Instructions Recorded predniSONE [Deltasone] 20 mg PO BID #8 tab 12/31/19 Nicotine 21Mg/24Hr Patch [Habitrol] 1 patch TRANSDERM DAILY 30 Days 01/04/20 #30 patch lamoTRIgine [LaMICtal] 50 mg PO BID tab 01/04/20 Allergies Allergy/AdvReac Type Severity Reaction Status Date / Time Penicillins Allergy Unknown Verified 01/03/20 18:36 ibuprofen AdvReac patient Verified 01/03/20 18:36 has ulcer Review of Systems ROS Statement: Those systems with pertinent positive or pertinent negative responses have been documented in the HPI. ROS Other: All systems not noted in ROS Statement are negative. 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 Absent: scleral icterus, conjunctival injection, periorbital swelling ENT exam: Present: normal exam, normal oropharynx, mucous membranes moist Neck exam: Present: normal inspection, full ROM. Absent: tenderness, meningismus, lymphadenopathy Respiratory exam: Present: normal lung sounds bilaterally. Absent: respiratory distress, wheezes, rales, rhonchi, stridor Cardiovascular Exam: Present: normal rhythm, tachycardia, normal heart sounds. Absent: systolic murmur, diastolic murmur, rubs, gallop, clicks GI/Abdominal exam: Present: soft, normal bowel sounds. Absent: distended, tenderness, guarding, rebound, rigid Neurological exam: Present: alert, oriented X3, CN II-XII intact Psychiatric exam: Present: flat affect Skin exam: Present: warm, dry, intact, normal color. Absent: rash Course Vital Signs 03/25/21 03/25/21 19:53 20:17 Temperature 99.1 F 99.1 F Pulse Rate 121 H 121 H Respiratory 16 118 H Rate Blood Pressure 137/96 137/96 O2 Sat by Pulse 99 99 Oximetry Medical Decision Making - Medical Decision Making Patient presented for severe alcohol intoxication of alcohol abuse. Daughter states that she has says she's been suicidal patient is denying this. Patient will be admitted for alcohol intoxication, pending psychiatric evaluation. - Lab Data Result diagrams: 03/25/21 21:07 03/25/21 21:07 Lab Results 03/25/21 03/25/21 03/25/21 Range/Units 21:07 21:07 21:07 WBC 9.2 (3.8-10.6) k/uL RBC 4.27 (3.80-5.40) m/uL Hgb 14.0 (11.4-16.0) gm/dL Hct 42.2 (34.0-46.0) % MCV 98.9 (80.0-100.0) fL MCH 32.7 (25.0-35.0) pg MCHC 33.1 (31.0-37.0) g/dL RDW 15.7 H (11.5-15.5) % Plt Count 188 (150-450) k/uL MPV 6.9 Neutrophils % 42 % Lymphocytes % 48 % Monocytes % 3 % Eosinophils % 1 % Basophils % 1 % Neutrophils # 3.8 (1.3-7.7) k/uL Lymphocytes # 4.5 (1.0-4.8) k/uL Monocytes # 0.3 (0-1.0) k/uL Eosinophils # 0.1 (0-0.7) k/uL Basophils # 0.1 (0-0.2) k/uL Macrocytosis Slight Sodium 145 (137-145) mmol/L Potassium 5.3 H (3.5-5.1) mmol/L Chloride 110 H (98-107) mmol/L Carbon Dioxide 19 L (22-30) mmol/L Anion Gap 16 mmol/L BUN 12 (7-17) mg/dL Creatinine 0.49 L (0.52-1.04) mg/dL Est GFR (CKD-EPI)AfAm >90 (>60 ml/min/1.73 sqM) Est GFR (CKD-EPI)NonAf >90 (>60 ml/min/1.73 sqM) Glucose 107 H (74-99) mg/dL Calcium 9.5 (8.4-10.2) mg/dL Magnesium 2.1 (1.6-2.3) mg/dL Total Bilirubin 0.7 (0.2-1.3) mg/dL AST 64 H (14-36) U/L ALT 18 (4-34) U/L Alkaline Phosphatase 82 (38-126) U/L Total Protein 9.2 H (6.3-8.2) g/dL Albumin 5.0 (3.5-5.0) g/dL Lipase 251 (23-300) U/L Serum Alcohol 372 H* mg/dL Coronavirus (PCR) Not Detected (Not Detectd) Disposition Clinical Impression: Alcoholic intoxication, Depression Disposition: ADMITTED IP TO THIS HOSP Condition: Fair Referrals: None,Stated [Primary Care Provider] - 1-2 days
[2021-03-25] MEDS: THIAMINE 100 MG TAB PO SCH (21:28)
[2021-03-25] MEDS: LORazepam 2 MG/ML INJ IV PRN ×3 (21:31→23:47)
[2021-03-25 21:55] LABS: Basophils # (A) 0.1 k/uL (0-0.2); Basophils % (A) 1 %; Eosinophils # (A) 0.1 k/uL (0-0.7); Eosinophils % (A) 1 %; HCT 42.2 % (34.0-46.0); Lymphocytes # (A) 4.5 k/uL (1.0-4.8); Lymphocytes % (A) 48 %; MCH 32.7 pg (25.0-35.0); MCHC 33.1 g/dL (31.0-37.0); MCV 98.9 fL (80.0-100.0); Macrocytosis Slight; Mean Platelet Volume 6.9; Monocytes # (A) 0.3 k/uL (0-1.0); Monocytes % (A) 3 %; Neutrophils # (A) 3.8 k/uL (1.3-7.7); Neutrophils % (A) 42 %; Platelet Count 188 k/uL (150-450); RBC 4.27 m/uL (3.80-5.40); RDW 15.7 % (11.5-15.5); WBC 9.2 k/uL (3.8-10.6)
[2021-03-25 21:56] LABS: ALT 18 U/L (4-34); African American GFR (CKD) >90 (>60 ml/min/1.73 sqM); Anion Gap 16 mmol/L; Blood Urea Nitrogen 12 mg/dL (7-17); Calcium 9.5 mg/dL (8.4-10.2); Carbon Dioxide 19 mmol/L (22-30); Chloride 110 mmol/L (98-107); Glucose 107 mg/dL (74-99); Lipase 251 U/L (23-300); Non-African American GFR(CKD) >90 (>60 ml/min/1.73 sqM); Sodium 145 mmol/L (137-145); Total Bilirubin 0.7 mg/dL (0.2-1.3)
[2021-03-25 22:22] LABS: Alcohol 372 mg/dL
[2021-03-25 22:23] LABS: AST 64 U/L (14-36); Alkaline Phosphatase 82 U/L (38-126); Magnesium 2.1 mg/dL (1.6-2.3); Potassium 5.3 mmol/L (3.5-5.1); Total Protein 9.2 g/dL (6.3-8.2)
[2021-03-25] MEDS ORDERED: NALOXONE 0.4 MG/ML 1 ML VIAL IV PRN (22:28)
[2021-03-25] MEDS ORDERED: ONDANSETRON 4 MG/2 ML VIAL IVP PRN (22:28)
[2021-03-25 23:06] LABS: Appearance,Urine Clear (Clear); Bacteria,Urine Rare /hpf; Bilirubin,Urine Negative (Negative); Blood,Urine Small (Negative); Color,Urine Light Yellow; Glucose,Urine (UA) Negative (Negative); Ketones,Urine Negative (Negative); Leukocyte Esterase,Urine Negative (Negative); Mucus,Urine Rare /hpf; Nitrite,Urine Negative (Negative); Protein,Urine Negative (Negative); RBC,Urine <1 /hpf (0-5); Specific Gravity,Urine 1.011 (1.001-1.035); Squamous Epithelial Cell,Urine 1 /hpf (0-4); Urobilinogen,Urine <2.0 mg/dL (<2.0); WBC,Urine 1 /hpf (0-5)
[2021-03-26] MEDS: LORazepam 2 MG/ML INJ IV PRN ×5 (02:49→12:25)
--- NOTE | 2021-03-26 03:38 | P.HPIM ---
History of Present Illness H&P Date: 03/25/21 Chief Complaint: Alcohol intoxication 45-year-old female with hypertension, COPD, alcohol abuse and dependence Patient comes in today intoxicated with alcohol seeking help. Patient herself denies any suicidal ideation however daughter reported that patient was voicing suicidal ideation for which he decided to bring her in for evaluation. She has been drinking heavily for the past 2 weeks she is Unclear recognizing that she had alcohol problems and seeking help. She denies any fevers chills nausea vomiting abdominal pain chest pain or trouble breathing. Patient remains intoxicated at this time and looks sleepy. Initial blood work was evaluated reviewed Patient admitted for sobriety and psych evaluation Review of Systems ROS unobtainable: due to mental status Past Medical History Past Medical History: Asthma, COPD, Hypertension, Myocardial Infarction ([place]), Seizure Disorder Additional Past Medical History / Comment(s): gastric ulcer, emphysema, seizure after stopping etoh use Last Myocardial Infarction Date:: unk History of Any Multi-Drug Resistant Organisms: None Reported Past Surgical History: Orthopedic Surgery Additional Past Surgical History / Comment(s): TMJ (jaw was locked), 3 left rotator cuff surgeries Past Anesthesia/Blood Transfusion Reactions: No Reported Reaction Past Psychological History: ADD/ADHD, Anxiety, Bipolar, Depression Smoking Status: Current every day smoker Past Alcohol Use History: None Reported Past Drug Use History: None Reported - Past Family History Father Family Medical History: Congestive Heart Failure (CHF) Medications and Allergies Home Medications Medication Instructions Recorded Confirmed Type Metoprolol Tartrate [Lopressor] 25 mg PO BID 12/21/19 03/25/21 History traMADol HCL 50 mg PO QID PRN 12/21/19 03/25/21 History traZODone HCL 300 mg PO HS 12/21/19 03/25/21 History Melatonin 10 mg PO HS PRN 03/25/21 03/25/21 History Allergies Allergy/AdvReac Type Severity Reaction Status Date / Time Penicillins Allergy Unknown Verified 03/25/21 22:59 ibuprofen AdvReac patient Verified 03/25/21 22:59 has ulcer Physical Exam Vitals: Vital Signs Temp Pulse Resp BP Pulse Ox 03/25/21 20:17 99.1 F 121 H 118 H 137/96 99 03/25/21 19:53 99.1 F 121 H 16 137/96 99 Intake and Output 12/12/0603/25/21 03/25/21 06:59 14:59 22:59 Other: Weight 56.699 kg Constitutional: No acute distress, patient is sleepy but arousable she looks intoxicated Eyes: Anicteric sclerae, moist conjunctiva, Pupils equal round reactive to light ENMT: NC/AT Oropharynx clear, no erythema, or exudates Neck: Supple, no masses, or JVD No carotid bruits No thyromegaly Lungs: Clear to auscultation Clear to percussion Normal respiratory effort, no accessory muscle use Cardiovascular: Heart regular in rate and rhythm, No murmurs, gallops, or rubs No peripheral edema Abdominal: Soft Nontender, no guarding, rebound or rigidity Abdomen moving with respiration Normoactive bowel sounds No hepatomegaly, No splenomegaly No palpable mass No abdominal wall hernia noted Skin: Normal temperature, tone, texture, turgor No induration No subcutaneous nodules No rash, lesions No ulcers Extremities: No digital cyanosis No clubbing Pedal pulses intact and symmetrical Radial pulses intact and symmetrical No calf tenderness Psychiatric: Patient is intoxicated with alcohol however arousable answer simple questions Neuro moving all 4 extremities spontaneously however unable to perform proper neuro exam patient cannot cooperate she seems to be intoxicated at this time Lymphatics: no palpable cervical or supraclavicular , or inguinal lymph nodes Results CBC & Chem 7: 03/25/21 21:07 03/25/21 21:07 Labs: Abnormal Lab Results - Last 24 Hours (Table) 03/25/21 03/25/21 Range/Units 21:07 21:07 RDW 15.7 H (11.5-15.5) % Potassium 5.3 H (3.5-5.1) mmol/L Chloride 110 H (98-107) mmol/L Carbon Dioxide 19 L (22-30) mmol/L Creatinine 0.49 L (0.52-1.04) mg/dL Glucose 107 H (74-99) mg/dL AST 64 H (14-36) U/L Total Protein 9.2 H (6.3-8.2) g/dL Serum Alcohol 372 H* mg/dL Assessment and Plan Assessment: Alcohol dependence and abuse with severe alcohol intoxication and delirium Monitor for alcohol trouble syndrome Benzodiazepines perceptibly a scale IV fluid hydration Thiamine Seizure precautions Fall precautions Psych evaluation Chronic conditions Hypertension resume home medications DVT prophylaxis: Mechanical Full code Anticipated length of stay less than 2 midnights
[2021-03-26 08:09] VITALS: TEMP 99
[2021-03-26] MEDS ORDERED: PANTOPRAZOLE 40 MG/10 ML VIAL IV SCH (09:00)
[2021-03-26] MEDS ORDERED: METOPROLOL TARTRATE 25 MG TAB PO SCH (09:00)
[2021-03-26] MEDS: THIAMINE 100 MG TAB PO SCH (11:11)
[2021-03-26] MEDS ORDERED: chlordiazePOXIDE 25 MG CAP PO SCH (12:15)
[2021-03-26] MEDS ORDERED: NALTREXONE HCL 50 MG TAB PO SCH (12:15)
--- NOTE | 2021-03-26 12:18 | P.CN ---
Psychiatric Consult - . Consult date: 03/26/21 Consult:: 03/26/21 11:23 IDENTIFYING DATA: This patient is a 45-year-old female with a history of alcohol abuse, currently lives with her fianc and mother in a house. She is unemployed. She has 2 kids. REASON FOR REFERRAL: Psychiatry was consulted for depression and alcohol abuse. HISTORY OF PRESENT ILLNESS: The patient presented to the hospital via EMS for alcohol intoxication. Patient's blood alcohol level was 372 on admission. Patient had admitted to having an increase in her alcohol consumption in the past 2 weeks. Patient was acknowledging a history of depression in the ER however did not endorse any suicidal thoughts. Patient's daughter apparently had claimed that patient had made suicidal statements previously. Patient was noted to be tachycardic with her vital signs going through withdrawals. Her last four CIWA scores were 11,11,7 and 10 respectively. Patient's nurse claims that patient has been requesting Ativan frequently and anxious. Patient was seen at bedside and agreeable to speak to marketing underwriter. She immediately stated that "nothing you guys can do can help me". She was initially reluctant to speak to marketing underwriter however states that she has been drinking heavily for the past 2 weeks. She states that she has been on a "binge episode". She claims that she has been drinking approximately 1-2 shots of liquor and a 24 case of beer in 1 day. She states that her last drink was prior to coming in the hospital. She states that her fianc called the EMS because she was intoxicated. She states that she doesn't want to drink anymore and believes that she can quit by herself. She was refusing rehab however stated that she's been there twice in the past. She claims that she is feeling mildly depressed however "okay today". She was minimizing her alcohol use. She does claim that she is feeling anxious and going through mild withdrawal symptoms at this time. She states that she has a history of seizures and, located withdrawals in the past. She states that her sleep has been poor due to the alcohol use and was requesting to be put back on her trazodone and melatonin. She is denying any access to guns or weapons. At this time patient denies any suicidal or homical ideations, intent or plan. Patient denies any auditory, visual hallucinations and denies any paranoia or delusions. Patients admits to using cigarettes daily and alcohol daily and significantly for the past 2 weeks. Please see above for further details related to alcohol use. She has been to rehab twice. She has been on Vivitrol injections in the past. PAST PSYCHIATRIC HISTORY: Patient has a a history of alcohol abuse and depression/anxiety. Patient is currently on melatonin and trazodone at home. Patient denies any previous psychiatric hospitalizations. Patient denies any psychiatric outpatient follow-up. Patient denies any history of suicide attempts in the past. Past Medical History: Asthma, COPD, Hypertension, Myocardial Infarction ([place]), Seizure Disorder Additional Past Medical History / Comment(s): gastric ulcer, emphysema, seizure after stopping etoh use ALLERGIES: as per EMR. CHEMICAL DEPENDENCY HISTORY: as per HPI. FAMILY PSYCHIATRIC/SUBSTANCE USE HISTORY: denies SOCIAL HISTORY: Patient was born and raised in [place], [place]. She states that she did some college after high school. 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 She claims that she is a felon and a sex offender and served time in half-way approximately 1 year in the past. She has 2 kids and lives with her fianc and her mother in a house. MENTAL STATUS EXAM: General Appearance: Patient appears to be disheveled in appearance, stated age is alert, pleasant, and cooperative. Patient appears to have fair hygiene and grooming wearing hospital gown with fair eye contact. Behavior: Patient is calmly lying in bed without any agitated behavior. Somewhat anxious and reluctant. Speech: Patient's speech is fluent and nonpressured. Mood/Affect: Patient reports their mood is "anxious", affect is congruent, figdeting Suicidality/Homicidality: Patient denies having any suicidal or homicidal ideation intent or plan. Perceptions: Patient denies any visual hallucinations and denies any auditory hallucinations Though content/process: There is no evidence of any delusional thought content and thought process is linear and goal-directed. minimizes her subtance use Memory and concentration: AOX3, grossly intact for the purposes of this session. Can spell "WORLD" backwards Judgment and insight: poor IMPRESSIONS: Depressive disorder unspecified, rule out secondary to alcohol use Generalized anxiety disorder Alcohol use disorder, severe dependence, currently in withdrawal Nicotine dependence PLAN: -At this time patient DOES NOT meet criteria for inpatient psychiatric admission. -Would recommend the following medication changes/additions: Started melatonin 6 mg daily at bedtime for insomnia. Trazodone restarted at 300 mg daily at bedtime for insomnia/mood. Patient is refusing to be started on any antidepressant medication at this time. Started naltrexone 50 mg by mouth daily for alcohol cravings. Librium 25 mg 3 times a day for alcohol withdrawal, this can be slowly tapered down over the next few days -CIWA protocol with PRN Ativan for alcohol withdrawal. Continue to monitor vital signs. -cargo worker to provide patient with outpatient mental health/psychiatry resources for appropriate follow up upon discharge -[employer] spoke with patient about substance abuse and the harmful effects on medical and mental health, patient verbally understood and agreed. -cargo worker to provide patient substance use treatment resources including AA/NA meetings in the community. -patient is refusing rehab at this time. -Communicated plan to patient's nurse -would recoemmnd patient be observed and treated for etoh withdrawal for the next 1-2 days at least as she is going through active w/d sx and history of complicated withdrawals. -Psychiatry will sign off at this time -Please contact with any questions.
[2021-03-26 12:31] VITALS: BP 145/99; PULSE 92; RESP 18
--- NOTE | 2021-03-26 12:50 | P.PN ---
Subjective Progress Note Date: 03/26/21 Patient continues to report withdrawal symptoms, anxiety, shakiness. She declines to go to rehab after hospitalization. Psychiatry consult was pending at the time of by evaluation. Objective - Vital Signs Vital signs: Vital Signs Temp 99.0 F 03/26/21 07:20 Pulse 92 03/26/21 12:29 Resp 18 03/26/21 12:29 BP 145/99 03/26/21 12:29 Pulse Ox 98 03/26/21 12:29 Intake & Output 03/25/21 03/26/21 03/26/21 18:59 06:59 18:59 Weight 56.699 kg - Exam Gen: awake, alert HEENT: normocephalic, atraumatic, good hearing acuity, moist mucous membranes Resp: good air exchange, breathing comfortably with no accessory muscle use CVS: good distal perfusion x 4, GI: soft, NTTP, ND : no SPT, no CVAT, diaz catheter not present MSK: no pitting edema, no clubbing Neuro: non-focal, moving all extremities Psych: cooperative, anxious mood - Labs CBC & Chem 7: 03/25/21 21:07 03/25/21 21:07 Labs: Abnormal Lab Results - Last 24 Hours (Table) 03/25/21 03/25/21 03/25/21 Range/Units 21:07 21:07 22:44 RDW 15.7 H (11.5-15.5) % Potassium 5.3 H (3.5-5.1) mmol/L Chloride 110 H (98-107) mmol/L Carbon Dioxide 19 L (22-30) mmol/L Creatinine 0.49 L (0.52-1.04) mg/dL Glucose 107 H (74-99) mg/dL AST 64 H (14-36) U/L Total Protein 9.2 H (6.3-8.2) g/dL Urine Blood Small H (Negative) Urine Bacteria Rare H (None) /hpf Urine Mucus Rare H (None) /hpf Serum Alcohol 372 H* mg/dL Assessment and Plan Assessment: Alcohol dependence and abuse presenting with encephalopathy secondary to alcohol intoxication Alcohol withdrawal syndrome Benzodiazepines per CIWA scale IV fluid hydration Thiamine, MVI, folic acid Seizure precautions Fall precautions Psych evaluation, appreciate recs Hypertension resume home medications DVT prophylaxis: Mechanical Full code Anticipated length of stay less than 2 midnights
[2021-03-26] MEDS ORDERED: MELATONIN 3 MG TABLET PO SCH (21:00)
[2021-03-26] MEDS ORDERED: traZODone HCL 100 MG TAB PO SCH (21:00)
--- NOTE | 2021-03-27 15:33 | P.DS ---
Providers Date of admission: 03/25/21 22:30 Expected date of discharge: 03/27/21 Attending physician: Abner Burnett MD Consults: 03/25/21 22:29 Consult Physician Routine Consulting Provider: Harman Ashley Consult Reason/Comments: depression, alcohol abuse Do you want consulting provider notified?: Already Contacted Primary care physician: Stated None Hospital Course: I received a call from nursing that this patient left AGAINST MEDICAL ADVICE after being cleared by psychiatry from the point of few of suicidal ideation. Patient was not interested in staying in the hospital for alcohol detox. Patient Condition at Discharge: Good Plan - Discharge Summary New Discharge Prescriptions: New Folic Acid 1 mg PO DAILY #30 tablet Multivitamin [Multivitamins Adult Gummies] 1 each PO DAILY #30 tablet Naltrexone HCl [Revia] 50 mg PO DAILY #30 tablet Thiamine [Vitamin B-1] 100 mg PO BID-W/MEALS #60 tab Continue traZODone HCL 300 mg PO HS Metoprolol Tartrate [Lopressor] 25 mg PO BID traMADol HCL 50 mg PO QID PRN PRN Reason: Pain Melatonin 10 mg PO HS PRN PRN Reason: SLEEP Discharge Medication List Metoprolol Tartrate [Lopressor] 25 mg PO BID 12/21/19 [History] traMADol HCL 50 mg PO QID PRN 12/21/19 [History] traZODone HCL 300 mg PO HS 12/21/19 [History] Melatonin 10 mg PO HS PRN 03/25/21 [History] Folic Acid 1 mg PO DAILY #30 tablet 03/26/21 [Rx] Multivitamin [Multivitamins Adult Gummies] 1 each PO DAILY #30 tablet 03/26/21 [Rx] Naltrexone HCl [Revia] 50 mg PO DAILY #30 tablet 03/26/21 [Rx] Thiamine [Vitamin B-1] 100 mg PO BID-W/MEALS #60 tab 03/26/21 [Rx] Follow up Appointment(s)/Referral(s): None,Stated [Primary Care Provider] - 1-2 days Discharge Disposition: Left Against Medical Advice
== END 2021-03-26 13:59 | disposition left against medical advice (07) ==
LOC: EC 19:43 → 1SOBS 22:30 → 6NMEDSUR 03-26 08:47
PROVIDERS: ADMIT Internal Medicine; ATTEND Internal Medicine
DX: F10.239 Alcohol dependence with withdrawal, unspecified (principal); F10.221 Alcohol dependence with intoxication delirium; F10.231 Alcohol dependence with withdrawal delirium; G31.2 Degeneration of nervous system due to alcohol; Z53.29 Procedure and treatment not carried out because of patient's decision for other reasons; F17.210 Nicotine dependence, cigarettes, uncomplicated; Y90.8 Blood alcohol level of 240 mg/100 ml or more; F31.9 Bipolar disorder, unspecified; F41.1 Generalized anxiety disorder; R45.851 Suicidal ideations; Z20.822 Contact with and (suspected) exposure to COVID-19; J43.9 Emphysema, unspecified; I10 Essential (primary) hypertension; G40.909 Epilepsy, unspecified, not intractable, without status epilepticus; I25.2 Old myocardial infarction; F90.9 Attention-deficit hyperactivity disorder, unspecified type; Z79.899 Other long term (current) drug therapy; Z88.0 Allergy status to penicillin; Z71.41 Alcohol abuse counseling and surveillance of alcoholic; Z88.6 Allergy status to analgesic agent; Z87.11 Personal history of peptic ulcer disease; Z87.39 Personal history of other diseases of the musculoskeletal system and connective tissue; Z82.49 Family history of ischemic heart disease and other diseases of the circulatory system
CPT/HCPCS: 99285; 96376 ×2; 82075; 96361 ×2; 96374; 96375; 36415; 80053; 83690; 83735; 85025; 81001; 87635; G0378 ×2; G0480; J2060 ×2; J2405; C9113; 80320

== ENCOUNTER 2023-10-05 12:51 | Day surgery (SDC) | payer OTHER ==
[2023-10-05 13:25] LABS: Mean Platelet Volume 7.5; Platelet Count 203 k/uL (150-450)
[2023-10-05 13:27] VITALS: BP 105/69; PULSE 89; RESP 16; TEMP 98.2
[2023-10-05 13:33] LABS: African American GFR (CKD) >90 (>60 ml/min/1.73 sqM); Non-African American GFR(CKD) >90 (>60 ml/min/1.73 sqM)
[2023-10-05 13:39] LABS: Prothrombin Time 10.7 sec (10.0-12.5)
--- NOTE | 2023-10-05 13:59 | US ---
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 Dannie Maldonado PROCEDURE: Preprocedure imaging demonstrated no significant fluid to be safely drained. Procedure can celed. IMPRESSION: Canceled paracentesis due to lack of fluid.
[2023-10-05] MEDS: ALBUMIN HUMAN 25% 50 ML in EMPTY BAG 1 BAG IVPB SCH (14:06)
== END 2023-10-05 14:09 | disposition home or self-care (01) ==
LOC: RADPROMAIN 12:51
PROVIDERS: ATTEND Family Medicine
DX: Z53.8 Procedure and treatment not carried out for other reasons (principal); K70.31 Alcoholic cirrhosis of liver with ascites
CPT/HCPCS: 36415; 76705; 82565; 85049; 85610

== ENCOUNTER → 2023-11-22 | Outpatient (CLI) | payer OTHER ==
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
== END | disposition home or self-care (01) ==
LOC: RADUSWWP 15:41
PROVIDERS: ATTEND Internal Medicine Gastroenterology
DX: K80.20 Calculus of gallbladder without cholecystitis without obstruction (principal); R11.2 Nausea with vomiting, unspecified
CPT/HCPCS: 76705

== ENCOUNTER 2024-04-04 13:59 | Emergency (ER) | payer OTHER ==
[2024-04-04 14:04] VITALS: RESP 18
[2024-04-04] MEDS: MORPHINE SULFATE 4 MG/ML SYRINGE IVP STA (14:37)
--- NOTE | 2024-04-04 14:43 | ED ---
Back Pain HPI - General Chief Complaint: Back Pain/Injury Stated Complaint: back pain Time Seen by Provider: 04/04/24 14:14 Source: patient, EMS, RN notes reviewed Limitations: no limitations - History of Present Illness Initial Comments: This is a 48-year-old female with history of alcohol use disorder and subsequent alcoholic liver cirrhosis, COPD, and chronic back pain, presented to emergency department via EMS for chief complaint of lower back and right flank pain. Patient states that she had a fall on Tuesday when she was carrying groceries and slipped and fell onto her back. Patient denies hitting her head or loss conscious, head injury. She denies radiation of pain down bilateral legs, loss of bladder or bowel continence, saddle anesthesias. Denies previous surgeries of the lumbar spine. Patient was evaluated yesterday at outside emergency department where she underwent x-ray imaging that was unremarkable. States that she has had continued pain. denies hematuria, history of kidney stones, urinary habit changes. - Related Data Home Medications Medication Instructions Recorded Confirmed traMADol HCL 100 mg PO BID PRN 12/21/19 09/23/23 traZODone HCL 300 mg PO HS 12/21/19 10/05/23 Famotidine 40 mg PO DAILY 09/23/23 09/23/23 Meclizine [Antivert] 25 mg PO DAILY 09/23/23 09/23/23 Omeprazole 40 mg PO DAILY 09/23/23 09/23/23 Previous Rx's Medication Instructions Recorded Lidocaine 5% Patch [Lidoderm] 1 patch TOPICAL DAILY #10 patch 04/04/24 Allergies Allergy/AdvReac Type Severity Reaction Status Date / Time codeine Allergy Rash/Hives Verified 04/04/24 14:04 Penicillins Allergy Unknown Verified 10/05/23 13:55 ibuprofen AdvReac patient Verified 10/05/23 13:55 has ulcer Review of Systems ROS Statement: Those systems with pertinent positive or pertinent negative responses have been documented in the HPI. ROS Other: All systems not noted in ROS Statement are negative. Past Medical History Past Medical History: Asthma, COPD, Hypertension, Liver Disease, Seizure Disorder Additional Past Medical History / Comment(s): gastric ulcer, emphysema, seizure after stopping etoh use, paracentesis, chirrosis Last Myocardial Infarction Date:: unk History of Any Multi-Drug Resistant Organisms: None Reported Past Surgical History: Orthopedic Surgery Additional Past Surgical History / Comment(s): TMJ (jaw was locked), 3 left rotator cuff surgeries Past Anesthesia/Blood Transfusion Reactions: No Reported Reaction Past Psychological History: ADD/ADHD, Anxiety, Bipolar, Depression Smoking Status: Current every day smoker Past Alcohol Use History: None Reported Past Drug Use History: None Reported - Past Family History Father Family Medical History: Congestive Heart Failure (CHF) General Exam Limitations: no limitations Eye exam: Present: normal appearance, PERRL, EOMI. Absent: scleral icterus, conjunctival injection, periorbital swelling Neck exam: Present: normal inspection. Absent: tenderness, meningismus, lymphadenopathy Respiratory exam: Present: normal lung sounds bilaterally. Absent: respiratory distress, wheezes, rales, rhonchi, stridor Cardiovascular Exam: Present: regular rate, normal rhythm, normal heart sounds. Absent: systolic murmur, diastolic murmur, rubs, gallop, clicks GI/Abdominal exam: Present: soft, normal bowel sounds. Absent: distended, tenderness, guarding, rebound, rigid Extremities exam: Present: normal inspection, full ROM, normal capillary refill. Absent: tenderness, pedal edema, joint swelling, calf tenderness Back exam: Present: normal inspection, full ROM, tenderness (lumbar), CVA tenderness (L). Absent: CVA tenderness (R) Neurological exam: Present: alert, oriented X3, CN II-XII intact Course Vital Signs 04/04/24 04/04/24 14:01 16:13 Temperature 98.2 F 98.4 F Pulse Rate 86 84 Respiratory 18 18 Rate Blood Pressure 120/82 122/81 O2 Sat by Pulse 98 99 Oximetry Medical Decision Making - Medical Decision Making Was pt. sent in by a medical professional or institution (, PA, ELIGIBILITY EXAMINER, urgent care, hospital, or prison...) When possible be specific @ -No Did you speak to anyone other than the patient for history (EMS, parent, family, police, friend...)? What history was obtained from this source @ -No Did you review nursing and triage notes (agree or disagree)? Why? @ -I reviewed and agree with nursing and triage notes Were old charts reviewed (outside hosp., previous admission, EMS record, old EKG, old radiological studies, urgent care reports/EKG's, prison records)? Report findings @ -No old charts were reviewed Differential Diagnosis (chest pain, altered mental status, abdominal pain women, abdominal pain men, vaginal bleeding, weakness, fever, dyspnea, syncope, headache, dizziness, GI bleed, back pain, seizure, CVA, palpatations, mental health, musculoskeletal)? @ -Differential Back Pain: Strain, zoster, cauda equina syndrome, epidural abscess, vertebral osteomyelitis, discitis, fracture, subluxation, disc herniation, DJD, spinal stenosis, dissection, AAA, pancreatitis, peptic ulcer disease, pyelonephritis, kidney stone, this is not meant to be an all-inclusive list. EKG interpreted by me (3pts min.). @ -none X-rays interpreted by me (1pt min.). @ -X-ray of the lumbar spine no acute fracture with minimal multilevel disc degeneration. CT interpreted by me (1pt min.). @ -None done U/S interpreted by me (1pt. min.). @ -None done What testing was considered but not performed or refused? (CT, X-rays, U/S, labs)? Why? @ -None What meds were considered but not given or refused? Why? @ -None Did you discuss the management of the patient with other professionals (professionals i.e. , PA, ELIGIBILITY EXAMINER, lab, RT, psych nurse, social insurance administrator, anode builder, teacher, sheriff's officer, child support case officer)? Give summary @ -No Was smoking cessation discussed for >3mins.? @ -No Was critical care preformed (if so, how long)? @ -No Were there social determinants of health that impacted care today? How? (Homelessness, low income, unemployed, alcoholism, drug addiction, transportation, low edu. Level, literacy, decrease access to med. care, snf, re hab)? @ -No Was there de-escalation of care discussed even if they declined (Discuss DNR or withdrawal of care, Hospice)? DNR status @ -No What co-morbidities impacted this encounter? (DM, HTN, Smoking, COPD, CAD, Cancer, CVA, ARF, Chemo, Hep., AIDS, mental health diagnosis, sleep apnea, morbid obesity)? @ -None Was patient admitted / discharged? Hospital course, mention meds given and route, prescriptions, significant lab abnormalities, going to OR and other pertinent info. @ -Discharge. 48-year-old female presenting with left flank pain and lumbar back pain. Patient noted to have tenderness palpation of the left flank and lumbar spine. There are no acute neurological deficits. There are no signs concerning for cauda equina syndrome including loss of bladder bowel continence, saddle seizures. Patient's urinalysis unremarkable for blood or infection. X- ray no acute process identified of the lumbar spine. On reevaluation after medication ministration patient states her symptoms have improved. Patient is provided with prescription for lidocaine patches and instructed to continue gentle exercise at home and follow-up with her primary care provider for further evaluation. Discussed with Dr. Franco Undiagnosed new problem with uncertain prognosis? @ -No Drug Therapy requiring intensive monitoring for toxicity (Heparin, Nitro, Insulin, Cardizem)? @ -No Were any procedures done? @ -No Diagnosis/symptom? @ -Back pain Acute, or Chronic, or Acute on Chronic? @ -acute Uncomplicated (without systemic symptoms) or Complicated (systemic symptoms)? @ -Uncomplicated Side effects of treatment? @ -No Exacerbation, Progression, or Severe Exacerbation? @ -No Poses a threat to life or bodily function? How? (Chest pain, USA, CT, pneumonia, PE, COPD, DKA, ARF, appy, cholecystitis, CVA, Diverticulitis, Homicidal, Suicidal, threat to staff... and all critical care pts) @ -No - Lab Data Lab Results 04/04/24 Range/Units 14:31 Urine Color Colorless Urine Appearance Clear (Clear) Urine pH 5.5 (5.0-8.0) Ur Specific [place] 1.004 (1.001-1.035) Urine Protein Negative (Negative) Urine Glucose (UA) Negative (Negative) Urine Ketones Negative (Negative) Urine Blood Negative (Negative) Urine Nitrite Negative (Negative) Urine Bilirubin Negative (Negative) Urine Urobilinogen <2.0 (<2.0) mg/dL Ur Leukocyte Esterase Negative (Negative) Disposition Clinical Impression: Lumbar back pain Disposition: HOME SELF-CARE Condition: Good Instructions (If sedation given, give patient instructions): Acute Low Back Pain (ED) Additional Instructions: Please return to the Emergency Department if symptoms worsen or any other concerns. Prescriptions: Lidocaine 5% Patch [Lidoderm] 1 patch TOPICAL DAILY #10 patch Is patient prescribed a controlled substance at d/c from ED?: No Referrals: Marbin Catherine MD [Primary Care Provider] - 1-2 days Time of Disposition: 15:46
[2024-04-04 14:48] LABS: Appearance,Urine Clear (Clear); Bilirubin,Urine Negative (Negative); Blood,Urine Negative (Negative); Color,Urine Colorless; Glucose,Urine (UA) Negative (Negative); Ketones,Urine Negative (Negative); Leukocyte Esterase,Urine Negative (Negative); Nitrite,Urine Negative (Negative); PH, Urine 5.5 (5.0-8.0); Protein,Urine Negative (Negative); Specific Gravity,Urine 1.004 (1.001-1.035); Urobilinogen,Urine <2.0 mg/dL (<2.0)
--- NOTE | 2024-04-04 15:33 | XR ---
EXAMINATION TYPE: XR lumbar spine 2 or 3V DATE OF EXAM: 04/04/2024 3:26 PM COMPARISON none: CLINICAL INDICATION: Female, 48 years old with history of pain; , pain TECHNIQUE: XR lumbar spine 2 or 3V - Frontal, lateral and coned in L5-S1 lateral views of the spine. FINDINGS: No evidence of any acute osseous pathology. No evidence of loss of vertebral body height i s seen. There is normal alignment of the lumbar vertebral bodies. Scattered disc space narrowing. Mul tilevel minimal marginal osteophyte formation throughout the visualized spine. There is facet joint a rthropathy throughout the spine. No significant neural foraminal stenosis. IMPRESSION: 1. No acute fracture. 2. Minimal multilevel disc degeneration. [facility], , 04/04/2024 3:30 PM
[2024-04-04] MEDS: MORPHINE SULFATE 2 MG/ML SYRINGE IVP ONE (16:08)
[2024-04-04] MEDS: LIDOCAINE 4% PATCH TOPICAL ONE (16:08)
[2024-04-04 16:17] VITALS: BP 122/81; PULSE 84; TEMP 98.4
== END 2024-04-04 16:17 | disposition home or self-care (01) ==
LOC: EC 13:59
DX: M54.50 Low back pain, unspecified (principal); F17.200 Nicotine dependence, unspecified, uncomplicated; Z88.0 Allergy status to penicillin; Z88.6 Allergy status to analgesic agent; Z88.8 Allergy status to other drugs, medicaments and biological substances
CPT/HCPCS: 81003; 72100; 99284; 96374; 96376; J2270 ×2

== ENCOUNTER 2024-08-30 13:19 | Emergency (ER) | payer OTHER ==
[2024-08-30 13:29] VITALS: TEMP 97.8
--- NOTE | 2024-08-30 14:12 | ED ---
General Adult HPI - General Chief complaint: Chest Pain Stated complaint: chest pain L arm pain Time Seen by Provider: 08/30/24 13:35 Source: patient, RN notes reviewed, old records reviewed Mode of arrival: ambulatory Limitations: no limitations - History of Present Illness Initial comments: This is a 48-year-old female who presents to the emergency department. Patient comes in complaining of some sharp chest pain yesterday and a couple times this morning. Patient states each episode of chest pain lasted about 1 second she had 3 episodes yesterday and 2 this morning. Patient states today she also felt her right arm was going to sleep but she never lost sensation. Patient never lost any function of the left arm. Patient denies any recent fever chills or cough. Patient denies abdominal pain patient has nausea vomiting. Patient states currently she has had no chest pain and not having any numbness. Patient states he could very well be her anxiety because she has a long history of anxiety. Patient is a smoker - Related Data Home Medications Medication Instructions Recorded Confirmed traMADol HCL 100 mg PO BID PRN 12/21/19 09/23/23 traZODone HCL 300 mg PO HS 12/21/19 10/05/23 Famotidine 40 mg PO DAILY 09/23/23 09/23/23 Meclizine [Antivert] 25 mg PO DAILY 09/23/23 09/23/23 Omeprazole 40 mg PO DAILY 09/23/23 09/23/23 Previous Rx's Medication Instructions Recorded Lidocaine 5% Patch [Lidoderm] 1 patch TOPICAL DAILY #10 patch 04/04/24 Allergies Allergy/AdvReac Type Severity Reaction Status Date / Time codeine Allergy Rash/Hives Verified 04/04/24 14:04 Penicillins Allergy Unknown Verified 10/05/23 13:55 ibuprofen AdvReac patient Verified 10/05/23 13:55 has ulcer Review of Systems ROS Statement: Those systems with pertinent positive or pertinent negative responses have been documented in the HPI. ROS Other: All systems not noted in ROS Statement are negative. Past Medical History Past Medical History: Asthma, COPD, Hypertension, Liver Disease, Seizure Disorder Additional Past Medical History / Comment(s): gastric ulcer, emphysema, seizure after stopping etoh use, paracentesis, chirrosis Last Myocardial Infarction Date:: unk History of Any Multi-Drug Resistant Organisms: None Reported Past Surgical History: Orthopedic Surgery Additional Past Surgical History / Comment(s): TMJ (jaw was locked), 3 left rotator cuff surgeries Past Anesthesia/Blood Transfusion Reactions: No Reported Reaction Past Psychological History: ADD/ADHD, Anxiety, Bipolar, Depression Smoking Status: Current every day smoker Past Alcohol Use History: Abuse Past Drug Use History: None Reported - Past Family History Father Family Medical History: Congestive Heart Failure (CHF) General Exam - General Exam Comments Initial Comments: GENERAL: Patient is well-developed and well-nourished. Patient is nontoxic and well- hydrated and is in mild distress. ENT: Neck is soft and supple. No significant lymphadenopathy is noted. Oropharynx is clear. Moist mucous membranes. Neck has full range of motion without eliciting any pain. EYES: The sclera were anicteric and conjunctiva were pink and moist. Extraocular movements were intact and pupils were equal round and reactive to light. Eyelids were unremarkable. PULMONARY: Unlabored respirations. Good breath sounds bilaterally. No audible rales rhonchi or wheezing was noted. CARDIOVASCULAR: There is a regular rate and rhythm without any murmurs gallops or rubs. ABDOMEN: Soft and nontender with normal bowel sounds. SKIN: Skin is clear with no lesions or rashes and otherwise unremarkable. NEUROLOGIC: Patient is alert and oriented x3. Cranial nerves II through XII are grossly intact. Motor and sensory are also intact. Normal speech, volume and content. Symmetrical smile. MUSCULOSKELETAL: Normal extremities with adequate strength and full range of motion. No lower extremity swelling or edema. No calf tenderness. LYMPHATICS: No significant lymphadenopathy is noted PSYCHIATRIC: Patient is very anxious Limitations: no limitations Course Vital Signs 08/30/24 08/30/24 08/30/24 13:27 15:26 15:49 Temperature 97.8 F Pulse Rate 110 H 90 90 Respiratory 20 18 18 Rate Blood Pressure 119/78 101/55 113/78 O2 Sat by Pulse 98 98 98 Oximetry Medical Decision Making - Medical Decision Making EKG is interpreted by myself. EKG shows a sinus rhythm at 95 bpm TX 152 QRS is 82 QT interval is 351 QTc is 403. Patient's EKG shows no ST segment ovation or depression Was pt. sent in by a medical professional or institution (, PA, GLOBAL SALES DIRECTOR, urgent care, hospital, or residential...) When possible be specific @ -No Did you speak to anyone other than the patient for history (EMS, parent, family, police, friend...)? What history was obtained from this source @ -No Did you review nursing and triage notes (agree or disagree)? Why? @ -I reviewed and agree with nursing and triage notes Were old charts reviewed (outside hosp., previous admission, EMS record, old EKG, old radiological studies, urgent care reports/EKG's, residential records)? Report findings @ -No old charts were reviewed Differential Diagnosis? @ -Differential Chest Pain: Stable Angina, Unstable Angina, STEMI, NSTEMI Aortic Dissection, Pneumothorax, Musculoskeletal, Esophageal Spasm GERD, Cholecystitis, Pancreatitis, Zoster, this is not meant to be an all-inclusive list. EKG interpreted by me (3pts min.). @ -As above X-rays interpreted by me (1pt min.). @ -X-ray shows no acute abnormality CT interpreted by me (1pt min.). @ -None done U/S interpreted by me (1pt. min.). @ -None done What testing was considered but not performed or refused? (CT, X-rays, U/S, labs)? Why? @ -None What meds were considered but not given or refused? Why? @ -None Did you discuss the management of the patient with other professionals (professionals i.e. , PA, GLOBAL SALES DIRECTOR, lab, RT, psych nurse, manager social work, manager auto, teacher, parking regulation enforcement officer, caser up)? Give summary @ -No Was smoking cessation discussed for >3mins.? @ -No Was critical care preformed (if so, how long)? @ -No Were there social determinants of health that impacted care today? How? ( Homelessness, low income, unemployed, alcoholism, drug addiction, transportation, low edu. Level, literacy, decrease access to med. care, halfway, rehab)? @ -No Was there de-escalation of care discussed even if they declined (Discuss DNR or withdrawal of care, Hospice)? DNR status @ -No What co-morbidities impacted this encounter? (DM, HTN, Smoking, COPD, CAD, Cancer, CVA, ARF, Chemo, Hep., AIDS, mental health diagnosis, sleep apnea, morbid obesity)? @ -None Was patient admitted / discharged? Hospital course, mention meds given and route, prescriptions, significant lab abnormalities, going to OR and other pertinent info. @ -Patient was extremely anxious I gave her 0.5 mg of Ativan and she also complained of chronic back pain she was given 0.5 of Dilaudid because she did not want to take Toradol. Patient had lab work done it was all within normal range. Chest x-ray was normal range. Patient's chest pain was sharp and only lasted 1 second at a time and she had 5 different episodes 3 yesterday and 2 today and she has not had any since she has been in the emergency department. Undiagnosed new problem with uncertain prognosis? @ -No Drug Therapy requiring intensive monitoring for toxicity (Heparin, Nitro, Insulin, Cardizem)? @ -No Were any procedures done? @ -No Diagnosis/symptom? @ -Atypical chest pain Acute, or Chronic, or Acute on Chronic? @ -Acute Uncomplicated (without systemic symptoms) or Complicated (systemic symptoms)? @ -Complicated Side effects of treatment? @ -No Exacerbation, Progression, or Severe Exacerbation? @ -No Poses a threat to life or bodily function? How? (Chest pain, [place], [place], pneumonia, PE, COPD, DKA, ARF, appy, cholecystitis, CVA, Diverticulitis, Homicidal, Suicidal, threat to staff... and all critical care pts) @ -No - Lab Data Result diagrams: 08/30/24 13:41 08/30/24 13:41 Lab Results 08/30/24 08/30/24 08/30/24 Range/Units 13:41 13:41 13:41 WBC 8.10 (4.50-10.00) 10*3/uL RBC 3.92 L (4.10-5.20) 10*6/uL Hgb 11.5 L (12.0-15.0) g/dL Hct 34.1 L (37.2-46.3) % MCV 87.0 (80.0-97.0) fL MCH 29.3 (27.0-32.0) pg MCHC 33.7 (32.0-37.0) g/dL Plt Count 251 (140-440) 10*3/uL MPV 8.6 L (9.5-12.2) fL Immature Gran % (Auto) 0.2 % Neutrophils % (Manual) 44 % Lymphocytes % (Manual) 50 % Monocytes % (Manual) 4 % Eosinophils % (Manual) 2 % Immature Gran # 0.02 (0.00-0.04) 10*3/uL Neutrophils # (Manual) 3.56 (1.3-7.7) k/uL Lymphocytes # (Manual) 4.05 (1.0-4.8) k/uL Monocytes # (Manual) 0.32 (0-1.0) k/uL Eosinophils # (Manual) 0.16 (0-0.7) k/uL Nucleated RBCs 0 (0-0) /100 WBC Manual Slide Review Performed Anisocytosis (manual) Present Spherocytes Present Stomatocytes Present PT 10.8 (10.0-12.5) sec INR 1.0 (<1.2) APTT 24.2 (22.0-30.0) sec Sodium 140 (137-145) mmol/L Potassium 4.3 (3.5-5.1) mmol/L Chloride 108 H (98-107) mmol/L Carbon Dioxide 22 (22-30) mmol/L Anion Gap 10 mmol/L BUN 16 (7-17) mg/dL Creatinine 0.78 (0.52-1.04) mg/dL Est GFR (CKD-EPI)AfAm >90 (>60 ml/min/1.73 sqM) Est GFR (CKD-EPI)NonAf >90 (>60 ml/min/1.73 sqM) Glucose 152 H (74-99) mg/dL Calcium 9.7 (8.4-10.2) mg/dL Magnesium 1.6 (1.6-2.3) mg/dL Total Bilirubin 0.4 (0.2-1.3) mg/dL AST 20 (14-36) U/L ALT 11 (4-34) U/L Alkaline Phosphatase 79 (38-126) U/L Troponin I (0.000-0.034) ng/mL Total Protein 7.6 (6.3-8.2) g/dL Albumin 4.4 (3.5-5.0) g/dL 08/30/24 Range/Units 13:41 WBC (4.50-10.00) 10*3/uL RBC (4.10-5.20) 10*6/uL Hgb (12.0-15.0) g/dL Hct (37.2-46.3) % MCV (80.0-97.0) fL MCH (27.0-32.0) pg MCHC (32.0-37.0) g/dL Plt Count (140-440) 10*3/uL MPV (9.5-12.2) fL Immature Gran % (Auto) % Neutrophils % (Manual) % Lymphocytes % (Manual) % Monocytes % (Manual) % Eosinophils % (Manual) % Immature Gran # (0.00-0.04) 10*3/uL Neutrophils # (Manual) (1.3-7.7) k/uL Lymphocytes # (Manual) (1.0-4.8) k/uL Monocytes # (Manual) (0-1.0) k/uL Eosinophils # (Manual) (0-0.7) k/uL Nucleated RBCs (0-0) /100 WBC Manual Slide Review Anisocytosis (manual) Spherocytes Stomatocytes PT (10.0-12.5) sec INR (<1.2) APTT (22.0-30.0) sec Sodium (137-145) mmol/L Potassium (3.5-5.1) mmol/L Chloride (98-107) mmol/L Carbon Dioxide (22-30) mmol/L Anion Gap mmol/L BUN (7-17) mg/dL Creatinine (0.52-1.04) mg/dL Est GFR (CKD-EPI)AfAm (>60 ml/min/1.73 sqM) Est GFR (CKD-EPI)NonAf (>60 ml/min/1.73 sqM) Glucose (74-99) mg/dL Calcium (8.4-10.2) mg/dL Magnesium (1.6-2.3) mg/dL Total Bilirubin (0.2-1.3) mg/dL AST (14-36) U/L ALT (4-34) U/L Alkaline Phosphatase (38-126) U/L Troponin I <0.012 (0.000-0.034) ng/mL Total Protein (6.3-8.2) g/dL Albumin (3.5-5.0) g/dL Disposition Clinical Impression: Chest pain, atypical Disposition: HOME SELF-CARE Instructions (If sedation given, give patient instructions): Chest Pain (ED) Is patient prescribed a controlled substance at d/c from ED?: No Referrals: Marbin Catherine MD [Primary Care Provider] - 1-2 days Time of Disposition: 15:50
[2024-08-30 14:16] LABS: HCT 34.1 % (37.2-46.3); HGB 11.5 g/dL (12.0-15.0); MCH 29.3 pg (27.0-32.0); MCHC 33.7 g/dL (32.0-37.0); Mean Platelet Volume 8.6 fL (9.5-12.2); Platelet Count 251 10*3/uL (140-440); RBC 3.92 10*6/uL (4.10-5.20); RDW 18.8 % (11.5-14.5)
[2024-08-30 14:29] LABS: ALT 11 U/L (4-34); AST 20 U/L (14-36); African American GFR (CKD) >90 (>60 ml/min/1.73 sqM); Albumin 4.4 g/dL (3.5-5.0); Alkaline Phosphatase 79 U/L (38-126); Anion Gap 10 mmol/L; Blood Urea Nitrogen 16 mg/dL (7-17); Calcium 9.7 mg/dL (8.4-10.2); Carbon Dioxide 22 mmol/L (22-30); Chloride 108 mmol/L (98-107); Glucose 152 mg/dL (74-99); Magnesium 1.6 mg/dL (1.6-2.3); Non-African American GFR(CKD) >90 (>60 ml/min/1.73 sqM); Potassium 4.3 mmol/L (3.5-5.1); Sodium 140 mmol/L (137-145); Total Bilirubin 0.4 mg/dL (0.2-1.3); Total Protein 7.6 g/dL (6.3-8.2)
--- NOTE | 2024-08-30 14:31 | XR ---
EXAMINATION TYPE: XR chest 2V DATE OF EXAM: 08/30/2024 2:17 PM COMPARISON: 01/03/2020 CLINICAL INDICATION: Female, 48 years old with history of Chest Pain, , TECHNIQUE: PA and lateral views FINDINGS: The cardiomediastinal silhouette, aorta, and pulmonary vasculature are within normal limits. Mild hyp erinflation. Lungs and pleural spaces are clear. IMPRESSION: Mild hyperinflation may relate to a depth of inspiration or underlying emphysema. Otherwise, no acute cardiopulmonary process. [facility], , 08/30/2024 2:29 PM
[2024-08-30 14:33] LABS: Partial Thromboplastin Time 24.2 sec (22.0-30.0); Prothrombin Time 10.8 sec (10.0-12.5)
[2024-08-30] MEDS: LORazepam 1 MG/0.5 ML VIAL IV STA (14:41)
[2024-08-30] MEDS: traMADol 50 MG TAB PO STA (15:13)
[2024-08-30 15:27] VITALS: PULSE 90; RESP 18
[2024-08-30 15:32] LABS: Eosinophils # (M) 0.16 k/uL (0-0.7); Lymphocytes # (M) 4.05 k/uL (1.0-4.8); Monocytes # (M) 0.32 k/uL (0-1.0); Neutrophils # (M) 3.56 k/uL (1.3-7.7); Neutrophils % (M) 44 %; Nucleated Red Blood Cells 0 /100 WBC (0-0); Stomatocytes Present; Total Cells Counted 100
[2024-08-30 15:33] LABS: Anisocytosis (M) Present; Spherocytes Present
[2024-08-30] MEDS: HYDROmorphone 0.5 MG/0.5 ML SYRINGE IVP STA (15:47)
[2024-08-30 15:50] VITALS: BP 113/78
== END 2024-08-30 16:06 | disposition home or self-care (01) ==
LOC: EC 13:19
DX: R07.89 Other chest pain (principal); F17.200 Nicotine dependence, unspecified, uncomplicated; Z88.0 Allergy status to penicillin; Z88.5 Allergy status to narcotic agent; Z88.6 Allergy status to analgesic agent
CPT/HCPCS: 36415; 93005; 80053; 83735; 84484; 85025; 85610; 85730; 71046; 99285; 96374; 96375; J2060; J1171